=== PATIENT | female | born 1955 | race Caucasian/White ===

== ENCOUNTER 2016-06-15 16:30 | Inpatient (IN) ==
[2016-06-15] MEDS ORDERED: MetroNIDAZOLE 500 MG/100 ML 500 MG/100 ML BAG IVPB ONE (17:46)
--- NOTE | 2016-06-15 17:55 | Emergency Department Note ---
Disposition Clinical Impression: Diverticulitis Qualifiers: Diverticulitis site: large intestine Diverticulitis bleeding: without bleeding Diverticulitis complication: without perforation or abscess Qualified Code(s): K57.32 - Diverticulitis of large intestine without perforation or abscess without bleeding Disposition: Admitted As Inpatient Condition: Fair Referrals: NO,PCP [Primary Care Provider] - Forms: Work/School Release, ED Satisfaction Letter Time of Disposition: 17:56 Abdominal Pain HPI - General Chief Complaint: ED Abdominal Pain Stated Complaint: ABD pain Source: patient Mode of arrival: ambulatory Limitations: no limitations Nursing Notes Reviewed: Yes Vital Signs Reviewed: Yes - History of Present Illness HPI Narrative: 2-year-old who complains of abdominal pain. Patient was seen by her family doctor had a CT yesterday which showed findings compatible with acute sigmoid diverticulitis there appears to be a very small fluid collection posterior to the sigmoid colon which may represent a small abscess. She was started on antibiotics and her symptoms got worse. Pt Subjective Complaint: abdominal pain Onset (ago): day(s) Consistency: constant Location: LLQ Pain Severity: severe Pain Scale: 9 Quality: cramping Radiation: none Migration to: no migration Improves with: nothing - Related Data Allergies Allergy/AdvReac Type Severity Reaction Status Date / Time meperidine [From Demerol] AdvReac Vomiting Verified 06/15/16 17:22 morphine AdvReac Vomiting Verified 06/15/16 17:22 Constitutional: Denies: fever, chills, weakness, weight change Eyes: Denies: eye pain, eye discharge, vision change ENT ED: Denies: ear pain, throat pain, dental pain, hearing loss, epistaxis, congestion, dysphagia Cardiovascular: Denies: chest pain, palpitations, dyspnea on exertion, edema, syncope Respiratory: Denies: cough, dyspnea, wheezes, hemoptysis, stridor Gastrointestinal: Reports: abdominal pain. Denies: nausea, vomiting, diarrhea, constipation, hematemesis, melena, hematochezia Genitourinary: Denies: dysuria, frequency, hematuria, discharge Musculoskeletal: Denies: back pain, neck pain, arthralgia, myalgia Integumentary: Denies: rash, abrasion, lesions Neurological: Denies: headache, weakness, numbness, paresthesias, confusion, abnormal gait, vertigo Psychiatric: Denies: anxiety, depression, suicidal thoughts, homicidal thoughts , auditory hallucinations, visual hallucinations Endocrine: Denies: fatigue Hematological/Lymphatic: Denies: easy bleeding, easy bruising Allergic/Immunologic: Denies: facial swelling, urticaria Abdominal Pain PMH - Past Medical History Medical history: Reports: fibromyalgia, other Female Surgical History: Reports: , cholecystectomy, hysterectomy, Tonsillectomy Psychiatric history: Reports: no psych history - Social History Smoking status: Never smoker Alcohol use: Reports: occasionally Drug use: Reports: none Physical Exam - General Limitations: no limitations General appearance: alert, in no apparent distress - Head Head exam: atraumatic, normocephalic, normal inspection - Eye Eye exam: Present: normal appearance, PERRL, EOMI - ENT ENT exam: normal exam, normal oropharynx, mucous membranes moist - Neck Neck exam: Present: normal inspection, full ROM, trachea midline - Chest Chest inspection: Present: normal inspection, symmetric chest wall rise - Respiratory Respiratory exam: Present: normal lung sounds bilaterally - Cardiovascular Cardiovascular exam: Present: regular rate, normal rhythm, normal heart sounds - Abdominal Exam Abdominal exam: Present: tenderness. Absent: guarding, rebound Abdominal tenderness: Present: LLQ - Extremities Exam Extremities exam: Present: normal inspection, full ROM. Absent: tenderness, pedal edema - Expanded Lower Extremity Exam Gait: observed and normal - Back Exam Back exam: Present: normal inspection, full ROM. Absent: tenderness - Neurological Exam Neurological exam: Present: alert, oriented X3 - Psychiatric Psychiatric exam: Present: normal affect, normal mood - Skin Skin exam: Present: warm, dry, intact, normal color Course - Consultations Consultation #1: Discussed with Dr. Murdock, admit to the hospitalist. Time: 18:38 Consultation #2: Discussed with Dr. Lopez, it. Time: 18:41 Vital Signs Temperature 98.3 F 06/15/16 17:18 Pulse Rate 96 06/15/16 17:18 Respiratory Rate 16 06/15/16 17:18 Blood Pressure 164/106 06/15/16 17:18 O2 Sat by Pulse Oximetry 98 06/15/16 17:18 Temperature 98.3 F 06/15/16 17:18 Pulse Rate 96 06/15/16 17:18 Respiratory Rate 16 06/15/16 17:18 Blood Pressure 164/106 06/15/16 17:18 O2 Sat by Pulse Oximetry 98 06/15/16 17:18 Oxygen Delivery Oxygen Delivery Room Air Abdominal Pain - Lab Data Result diagrams: 06/15/16 18:09 06/15/16 18:09 Lab Results 06/15/16 06/15/16 Range/Units 18:09 18:09 WBC 10.3 (4.3-11.1) K/mcL RBC 5.35 H (3.82-4.97) M/mcL Hgb 15.0 (11.5-15.4) g/dL Hct 43.3 (35.3-44.9) % MCV 80.9 L (83.0-100.0) fL MCH 28.0 (28.0-33.3) pg MCHC 34.6 (31.6-35.5) g/dL RDW 12.3 (11.5-14.5) % Plt Count 380 (140-400) K/mcL MPV 8.5 L (9.4-12.4) fL Immature Gran % 0.5 (0-4) % Seg Neutrophils % 70.8 % Lymphocytes % 19.1 % Monocytes % 8.0 % Eosinophils % 1.1 % Basophils % 0.5 % Neutrophils # 7.3 (1.6-8.9) K/mcL Lymphocytes # 2.0 (0.6-4.6) K/mcL Monocytes # 0.8 (0.0-1.3) K/mcL Eosinophils # 0.1 (0.0-0.6) K/mcL Basophils # 0.1 (0.0-0.2) K/mcL Sodium 139 (136-145) mEq/L Potassium 3.8 (3.5-4.5) mEq/L Chloride 105 (98-109) mEq/L Carbon Dioxide 22 (19-29) mEq/L BUN 15 (7-20) mg/dL Creatinine 0.96 (0.57-1.11) mg/dL Est GFR ( Amer) > 60 (> 60) Est GFR (Non-Af Amer) 59 L (> 60) BUN/Creatinine Ratio 16 (6-26) Glucose 123 H (70-99) mg/dL Calculated Osmolality 290 (280-300) Calcium 9.9 (8.6-10.8) mg/dL Total Bilirubin 0.5 (0.2-1.2) mg/dL Direct Bilirubin 0.2 (0.0-0.5) mg/dL Indirect Bilirubin 0.3 (0.0-1.2) mg/dL AST 19 (5-34) Units/L ALT 24 (0-55) Units/L Alkaline Phosphatase 120 (38-126) Units/L Serum Total Protein 8.2 (6.0-8.3) g/dL Albumin 3.7 (3.5-5.0) g/dL Globulin 4.5 H (2.4-3.5) g/dL Albumin/Globulin Ratio 0.8 L (1.1-2.2) Amylase 31 (25-125) Units/L Lipase 15 (8-78) Units/L S.B.A.R. - S.B.A.R. Recommendation: Recommendation based on pending studies, treatments, or consults S.B.A.R. Report Given to: Dr. Harrington SLibbyB.A.Duglas Repor Time: 19:00
[2016-06-15] MEDS ORDERED: *HR* HYDROmorphone (PF) 1 MG/ML SYRINGE IVP ONE (18:13)
[2016-06-15] MEDS ORDERED: *HR* Promethazine 25 MG/ML VIAL IVP ONE (18:13)
[2016-06-15 18:16] LABS: Basophils # 0.1 K/mcL (0.0-0.2); Basophils % 0.5 %; Eosinophils # 0.1 K/mcL (0.0-0.6); Eosinophils % 1.1 %; Hematocrit 43.3 % (35.3-44.9); Immature Granulocytes % 0.5 % (0-4); Lymphocytes % 19.1 %; Mean Corpuscular HGB Conc 34.6 g/dL (31.6-35.5); Mean Corpuscular Volume 80.9 fL (83.0-100.0); Mean Platelet Volume 8.5 fL (9.4-12.4); Monocytes # 0.8 K/mcL (0.0-1.3); Neutrophils # 7.3 K/mcL (1.6-8.9); Platelet Count 380 K/mcL (140-400); Red Blood Count 5.35 M/mcL (3.82-4.97); Red Cell Distribution Width 12.3 % (11.5-14.5); Segmented Neutrophils % 70.8 %
[2016-06-15 18:30] LABS: Alanine Aminotransferase 24 Units/L (0-55); Albumin 3.7 g/dL (3.5-5.0); Albumin/Globulin Ratio 0.8 (1.1-2.2); Alkaline Phosphatase 120 Units/L (38-126); Amylase 31 Units/L (25-125); Aspartate Amino Transferase 19 Units/L (5-34); BUN/Creatinine Ratio 16 (6-26); Bilirubin,Direct 0.2 mg/dL (0.0-0.5); Bilirubin,Indirect 0.3 mg/dL (0.0-1.2); Bilirubin,Total 0.5 mg/dL (0.2-1.2); Blood Urea Nitrogen 15 mg/dL (7-20); Calcium 9.9 mg/dL (8.6-10.8); Carbon Dioxide 22 mEq/L (19-29); Chloride 105 mEq/L (98-109); Globulin 4.5 g/dL (2.4-3.5); Glucose 123 mg/dL (70-99); Lipase 15 Units/L (8-78); Osmolality,Calculated 290 (280-300); Potassium 3.8 mEq/L (3.5-4.5); Sodium 139 mEq/L (136-145); Total Protein 8.2 g/dL (6.0-8.3); eGFR For African Americans > 60 (> 60); eGFR For Non-African Americans 59 (> 60)
[2016-06-15] MEDS ORDERED: Ertapenem 1,000 MG in 0.9 % Sodium Chloride Mini Bag 100 ML IVPB STA (18:40)
[2016-06-15] MEDS ORDERED: Naloxone 0.4 MG/ML INJ IVP PRN (20:03)
--- NOTE | 2016-06-15 20:12 | Internal Med History&Physical ---
Date of Encounter: 06/15/16 Time of Encounter: 07:45 Assessment and Plan (1) Diverticulitis Current visit: Yes Status: Acute Continue Ertapenem 1gm/day dilaudid .5 PRN Q2hr Phenergan 12.5 PRN Q4hr Maintenance saline 100ml/hr NPO diet Consult to surgery. Qualifiers: Diverticulitis site: large intestine Diverticulitis bleeding: without bleeding Diverticulitis complication: with abscess Qualified Code(s): K57.20 - Diverticulitis of large intestine with perforation and abscess without bleeding (2) Obesity (BMI 30-39.9) Current visit: Yes Status: Acute (3) DVT prophylaxis Current visit: Yes Status: Acute 5000 units heparin SQ Q8hr Internal Medicine - H&P: HPI Chief complaint: abdominal pain Admitted From: Emergency Dept Plans for Post Hospital Care: Home History of present illness: Ms. Jules is a 60 year old female with PMH significant for fibromyalgia who presented to the emergency room with abdominal pain. She states that the pain started two weeks ago and has been slowly worsening. Yesterday she went to see her primary care physician who started her on ciprofloxacin and metronidazole and sent her for a CT. The CT demonstrated acute sigmoid diverticulitis and a small fluid collection posterior to the sigmoid colon that may represent a small abscess. She states that she has been having to strain for her bowel movements for the past week, but did not have a bowel movement yet today due to worsening pain. She had a recent illness on 05/28/16 that included nausea, vomiting, and diarrhea, but these symptoms only lasted one day. She reports no nausea, vomiting, or diarrhea since then. She has had 2 instances of fever in the past week, but did not have her temperature measured. She denies having any blood in her stools and any darkening of her stools. Past Med Surg Social Fam HX - Past Medical History Medical history: fibromyalgia, other Psychiatric history: no psych history - Past Surgical History Surgical History: , cholecystectomy, hysterectomy (partial), other ( tonsillectomy) - Social History Smoking Status: Never smoker Smokeless Tobacco Status: No Alcohol use: occasionally Drug use: none - Family History Mother Adopted: No Family Member Ethnicity: Non- Twin of Family Member: Yes Living Status: Cause of : cancer Hx Family Cardiac Disorders: Yes (triple bypass) Hx Family Respiratory Disorders: No Hx Family Cancer: Yes Hx Family GI Disorders: No Hx Family Genitourinary Disorders: No Hx Family Endocrine Disorder: No Hx Family Musculoskeletal Disorders: No Hx Family Neuromuscular Disorders: No Hx Family Neurologic Disorders: No Hx Family HEENT Disorders: No Hx Family Autoimmune Disorders: No Hx Family Reproductive Disorders: No Hx Family Psychosocial Disorders: No Hx Family Medical Disorders: No Father Living Status: Hx Family Cancer: Yes (brain tumor) Sister Hx Family Cancer: Yes Brother Living Status: Still Living Hx Family Cancer: Yes (brain tumor) Internal Medicine - H&P: Meds Ciprofloxacin [Cipro] 500 mg PO BID 06/15/16 [History] MetroNIDAZOLE [Flagyl] 500 mg PO Q8H 06/15/16 [History] Allergies meperidine [From Demerol] Adverse Reaction (Verified 06/15/16 17:22) Vomiting morphine Adverse Reaction (Verified 06/15/16 17:22) Vomiting All Systems PM: A 10-system review of systems was performed and is negative for pertinent findings except as documented above in the HPI. - Constitutional Constitutional: fever(s), no chills, no night sweats - EENT Eyes: no change in vision, no discharge, no pain, no photophobia Ears: no ear discharge, no ear pain, no tinnitus Nose, mouth and throat: no dysphagia, no nasal discharge, no neck pain, no sore throat - Cardiovascular Cardiovascular ROS IM: no chest pain, no diaphoresis, no dyspnea, no lightheadedness, no palpitations, no syncope - Respiratory Respiratory: no cough, no dyspnea, no wheezing, no excessive phlegm production - Gastrointestinal Gastrointestinal: abdominal pain, no diarrhea, no hematemesis, no hematochezia, no melena, no nausea, no vomiting - Genitourinary Genitourinary: no change in urinary stream, no dysuria, no flank pain, no hematuria - Musculoskeletal Musculoskeletal ROS IM: no numbness, no tingling - Integumentary Integumentary IM: no rash, no unusual bruising - Neurological Neurological ROS: no confusion, no convulsions, no focal weakness, no numbness, no tingling, no tremor(s) - Hematologic/Lymphatic Hematologic/Lymphatic: no easy bruising - Constitutional Vitals: Temp Pulse Resp BP Pulse Ox 98.3 F 82 16 148/68 97 06/15/16 17:18 06/15/16 18:30 06/15/16 19:20 06/15/16 19:20 06/15/16 18:30 General appearance: Present: A&O X 3, pleasant, no acute distress - Head Head exam: Present: atraumatic, normocephalic - Eye Eye exam: Present: PERRL, conjuntiva pink, sclera anicteric Pupils: Present: PERRL - Neck Neck exam general surgery: Present: supple, trachea midline. Absent: lymphadenopathy - Respiratory Respiratory exam: Present: CTAB. Absent: accessory muscle use, rales, rhonchi, wheezes - Cardiovascular Cardiovascular exam: Present: RRR, +S1, +S2. Absent: diastolic murmur, gallop, rubs, systolic murmur - GI/Abdominal GI/Abdominal exam: Present: normal bowel sounds, soft, tenderness (LLQ), no peritoneal signs. Absent: distended, guarding, rigid - Extremities Exam Extremities exam: Present: warm, radial pulses palpable and symetrical. Absent : calf tenderness, cyanotic, pedal edema - Neurological Exam Neurological exam: Present: CN II-XII intact, oriented X3, no focal deficits. Absent: pronater drift, facial droop, speech deficit - Skin Skin exam: Present: dry, intact Internal Med - H&P Results - Labs CBC & Chem 7: 06/15/16 18:09 06/15/16 18:09 - Attending Attestation I examined this patient and my medical decision-making was reviewed with the [employer] SAL[employer] AGENT/PA/Advanced Practice Nurse/Resident Physician. I agree with the documented findings, disposition and treatment plan as described except to the extent set forth below.
[2016-06-15] MEDS ORDERED: 0.9 % Sodium Chloride 1,000 ML IVC SCH (20:15)
--- NOTE | 2016-06-15 20:21 | Event Note ---
Date of Encounter: 06/15/16 Time of Encounter: 20:19 Patient seen and examined with medical assistant secretary. Patient has been having lower abdominal pain for the past 2 weeks but has not sought medical advice except yesterday she was found to have acute diverticulitis with abscess formation. Started on Cipro and Flagyl yesterday but no improvement in pain rather worsening. She will be started on ertepenam, NPO, hydration. Surgery team to follow. Blood Cultures.
[2016-06-15] MEDS: *HR* HYDROmorphone (PF) 1 MG/ML SYRINGE IVP PRN (21:37)
[2016-06-15] MEDS: *HR* Promethazine 25 MG/ML VIAL IVP PRN (21:44)
[2016-06-15] MEDS: *HR* Heparin 5,000 UNIT/ML VIAL SQ SCH (21:44)
[2016-06-16] MEDS: *HR* HYDROmorphone (PF) 1 MG/ML SYRINGE IVP PRN ×6 (00:01→23:28)
[2016-06-16 00:10] LABS: Bilirubin,Urine Negative (Negative); Blood,Urine Negative (Negative); Clarity,Urine Clear (Clear); Color,Urine Dark Yellow (Yellow); Glucose,Urine (UA) Normal (Normal); Ketones,Urine Negative (Negative); Leukocyte Esterase,Urine Small (Negative); Nitrite,Urine Negative (Negative); Protein,Urine Negative (Neg-Trace); Specific Gravity,Urine 1.023 (1.010-1.025); Urobilinogen,Urine Normal (Normal)
[2016-06-16 00:13] LABS: Bacteria,Urine Few per hpf (None-Few); Hyaline Casts,Urine None Seen per lpf (None-Few); Squamous Epithelial Cell,Urine Many per lpf (None-Few)
[2016-06-16] MEDS: *HR* Promethazine 25 MG/ML VIAL IVP PRN ×4 (04:05→23:28)
[2016-06-16] MEDS: *HR* Heparin 5,000 UNIT/ML VIAL SQ SCH ×3 (05:23→21:27)
[2016-06-16 05:53] LABS: Basophils % 0.3 %; Eosinophils % 0.3 %; Hemoglobin 13.8 g/dL (11.5-15.4); Immature Granulocytes % 0.8 % (0-4); Lymphocytes # 1.4 K/mcL (0.6-4.6); Lymphocytes % 13.9 %; Mean Corpuscular HGB Conc 33.7 g/dL (31.6-35.5); Mean Corpuscular Volume 83.2 fL (83.0-100.0); Mean Platelet Volume 8.5 fL (9.4-12.4); Monocytes # 0.9 K/mcL (0.0-1.3); Monocytes % 9.2 %; Neutrophils # 7.7 K/mcL (1.6-8.9); Platelet Count 374 K/mcL (140-400); Red Blood Count 4.93 M/mcL (3.82-4.97); Red Cell Distribution Width 12.5 % (11.5-14.5); Segmented Neutrophils % 75.5 %
[2016-06-16 06:05] LABS: BUN/Creatinine Ratio 16 (6-26); Blood Urea Nitrogen 14 mg/dL (7-20); Calcium 9.3 mg/dL (8.6-10.8); Carbon Dioxide 24 mEq/L (19-29); Chloride 107 mEq/L (98-109); Glucose 123 mg/dL (70-99); Osmolality,Calculated 286 (280-300); Potassium 4.2 mEq/L (3.5-4.5); Sodium 137 mEq/L (136-145); eGFR For African Americans > 60 (> 60); eGFR For Non-African Americans > 60 (> 60)
[2016-06-16] MEDS: 0.9 % Sodium Chloride 1,000 ML IVC SCH ×3 (08:57→19:42)
[2016-06-16] MEDS: Ertapenem 1,000 MG in 0.9 % Sodium Chloride Mini Bag 100 ML IVPB SCH (09:05)
--- NOTE | 2016-06-16 12:21 | General Surgery Consult Note ---
<AlfieYolande Riley - Last Filed: 06/16/16 12:15> Date of Encounter: 06/16/16 Time of Encounter: 12:15 Assessment and Plan (1) Acute diverticulitis Current Visit: Yes Status: Acute Maintain NPO and bowel rest IV fluids IV antibiotics- Invanz abscess is small and not big enough for drain placement at this time Supportive care and pain control Serial abdominal exams Plan for interval colonoscopy in 6-[address] Richter History of Present Illness Consult date: 06/16/16 Reason for consult: other (diverticulitis with abscess) Requesting physician: Cortez Brown History of present illness: Mrs. Jules is a very pleasant 68. She reports a 2 week history of abdominal discomfort which has progressively worsened. She reported to her PCP and a CT scan of the abdomen/pelvis was complete. The CT showed evidence of acute diverticulitis with abscess formation. The patient was sent to the hospital for admission and treatment. She reports that the pain is located in the LLQ and suprapubic region. Radiation into the back noted. Admits to nausea without vomiting. She admits to chills and episodes of diaphoresis but has not checked her temperature at home. She states that her bowel movements have changed over the past few days. She typically has a bowel movement daily without any history of diarrhea or constipation. She had a small bowel movement yesterday and states that she has not been able to have a bowel movement today. She states that she has to pass flatus but that she is unable to. Admits to feeling bloated. She states that she has significant pressure with urination which has improved over the past 24 hours. Lack of appetite noted. She had her last colonoscopy in 2009 and states it was normal and she was told to have a repeat scope in 10 years for screening purposes. She has never had an episode of diverticulitis in the past. We have been asked to see and evaluate the patient for further recommendations. Past Med Surg Social Fam HX - Past Medical History Source: patient, old records reviewed Medical history: fibromyalgia, hypertension, other Psychiatric history: no psych history - Past Surgical History Surgical History: , cholecystectomy, hysterectomy (partial, still has ovaries), other (tonsillectomy, surgery for endometriosis, colonoscopy 2009) - Social History Smoking Status: Never smoker Smokeless Tobacco Status: No Alcohol use: occasionally (glass of wine on occasion) Drug use: none - Family History Mother Adopted: No Family Member Ethnicity: Non- Twin of Family Member: Yes Living Status: Age at : 64 Cause of : lung cancer Hx Family Cardiac Disorders: Yes (triple bypass) Hx Family Respiratory Disorders: No Hx Family Cancer: Yes Hx Family GI Disorders: No Hx Family Genitourinary Disorders: No Hx Family Endocrine Disorder: No Hx Family Musculoskeletal Disorders: No Hx Family Neuromuscular Disorders: No Hx Family Neurologic Disorders: No Hx Family HEENT Disorders: No Hx Family Autoimmune Disorders: No Hx Family Reproductive Disorders: No Hx Family Psychosocial Disorders: No Hx Family Medical Disorders: No Father Living Status: Age at : 67 Cause of : meningitis after brain surgery Hx Family Cancer: Yes (brain tumor) Sister Living Status: Age at : 54 Cause of : lung cancer Hx Family Cancer: Yes (lung cancer) Brother Living Status: Still Living Hx Family Cancer: Yes (brain tumor) Medications and Allergies Ciprofloxacin [Cipro] 500 mg PO BID 06/15/16 [History] MetroNIDAZOLE [Flagyl] 500 mg PO Q8H 06/15/16 [History] Allergies meperidine [From Demerol] Adverse Reaction (Verified 06/15/16 17:22) Vomiting morphine Adverse Reaction (Verified 06/15/16 17:22) Vomiting Review of Systems All systems PM: reviewed and no additional remarkable complaints except as stated (in the HPI) All systems PM: A 10-system review of systems was performed and is negative for pertinent findings except as documented above in the HPI. General Surgery Exam Initial Vital Signs Temp Pulse Resp BP Pulse Ox 98.3 F 96 16 164/106 98 06/15/16 17:18 06/15/16 17:18 06/15/16 17:18 06/15/16 17:18 06/15/16 17:18 - General physical appearance well developed, well nourished, no distress, moderate pain - Eyes normal ocular movement - ENT normal mucosa, atraumatic, normocephalic - Neck trachea midline - Respiratory normal expansion, normal respiratory effort, clear to auscultation - Cardiovascular Cardiovascular exam: Present: RRR, 15, 16 - Abdomen Abdomen general surgery: Present: bowel sounds present, soft, tender Abdominal Tenderness: Present: LLQ, suprapubic - Integumentary Integumentary general surgery: Present: warm and dry - Neurologic Present: CN 2-12 grossly intact, normal coordination, normal sensation - Musculoskeletal Present: normal gait, normal posture - Psychiatric Psychiatric general surgery: Present: appropriate, oriented to person, oriented to place, oriented to time, speech is normal, memory intact Exam Initial Vital Signs Temp Pulse Resp BP Pulse Ox 98.3 F 96 16 164/106 98 06/15/16 17:18 06/15/16 17:18 06/15/16 17:18 06/15/16 17:18 06/15/16 17:18 Results - Labs 06/16/16 05:39 06/16/16 05:39 Abnormal lab results MPV 8.5 fL (9.4-12.4) L 06/16/16 05:39 Immature Plt Fraction 1.0 % (1.1-6.1) L 06/16/16 05:39 Glucose 123 mg/dL (70-99) H 06/16/16 05:39 POC Glucose 115 (58-89) H 06/16/16 11:22 Globulin 4.5 g/dL (2.4-3.5) H 06/15/16 18:09 Albumin/Globulin Ratio 0.8 (1.1-2.2) L 06/15/16 18:09 Ur Leukocyte Esterase Small (Negative) H 06/15/16 23:55 Urine Microscopic RBC 3-5 per hpf (0-3) H 06/15/16 23:55 Urine Microscopic WBC 3-5 per hpf (0-3) H 06/15/16 23:55 Ur Squamous Epith Cells Many per lpf (None-Few) H 06/15/16 23:55 Ur Culture Indicated? YES (NO) A 06/15/16 23:55 Diabetes panel 06/16/16 Range/Units 05:39 Sodium 137 (136-145) mEq/L Potassium 4.2 (3.5-4.5) mEq/L Chloride 107 (98-109) mEq/L Carbon Dioxide 24 (19-29) mEq/L BUN 14 (7-20) mg/dL Creatinine 0.90 (0.57-1.11) mg/dL Glucose 123 H (70-99) mg/dL Calcium 9.3 (8.6-10.8) mg/dL Calcium panel 06/16/16 Range/Units 05:39 Calcium 9.3 (8.6-10.8) mg/dL Pituitary panel 06/16/16 Range/Units 05:39 Sodium 137 (136-145) mEq/L Potassium 4.2 (3.5-4.5) mEq/L Chloride 107 (98-109) mEq/L Carbon Dioxide 24 (19-29) mEq/L BUN 14 (7-20) mg/dL Creatinine 0.90 (0.57-1.11) mg/dL Glucose 123 H (70-99) mg/dL Calcium 9.3 (8.6-10.8) mg/dL Adrenal panel 06/16/16 Range/Units 05:39 Sodium 137 (136-145) mEq/L Potassium 4.2 (3.5-4.5) mEq/L Chloride 107 (98-109) mEq/L Carbon Dioxide 24 (19-29) mEq/L BUN 14 (7-20) mg/dL Creatinine 0.90 (0.57-1.11) mg/dL Glucose 123 H (70-99) mg/dL Calcium 9.3 (8.6-10.8) mg/dL All other labs normal. - Imaging CT scan - abdomen: report reviewed CT scan - pelvis: report reviewed Consult Discharge Plan - Plan Referrals: Maldonado Roberto DO [Primary Care Provider] - - Attending Attestation I examined this patient and my medical decision-making was reviewed with the FOCUSING MACHINE OPERATOR/PA/Advanced Practice Nurse/Resident Physician. I agree with the documented findings, disposition and treatment plan as described except to the extent set forth below. <Joana Richter - Last Filed: 06/16/16 18:11> Date of Encounter: 06/16/16 Assessment and Plan (1) Acute diverticulitis Current Visit: Yes Status: Acute (2) Colonic diverticular abscess Current Visit: Yes Status: Acute Patient with diverticular abscess unable to be drained at this time. WBC wnl, continue conservative management with bowel rest, npo, pain control, IV abx, serial abdominal exams. Will need repeat CT before DC Review of Systems All systems PM: A 10-system review of systems was performed and is negative for pertinent findings except as documented above in the HPI. General Surgery Exam Initial Vital Signs Temp Pulse Resp BP Pulse Ox 98.3 F 96 16 164/106 98 06/15/16 17:18 06/15/16 17:18 06/15/16 17:18 06/15/16 17:18 06/15/16 17:18 - General physical appearance well nourished, no distress - Eyes normal ocular movement - ENT normal mucosa, atraumatic, normocephalic - Abdomen Abdomen general surgery: Present: bowel sounds present, soft, tender. Absent: distended, guarding, rebound Abdominal Tenderness: Present: RLQ, LLQ, suprapubic - Integumentary Integumentary general surgery: Present: warm and dry, no abnormal pigmentation - Neurologic Present: CN 2-12 grossly intact - Musculoskeletal Present: normal posture - Psychiatric Psychiatric general surgery: Present: A&Ox3, speech is normal Exam Initial Vital Signs Temp Pulse Resp BP Pulse Ox 98.3 F 96 16 164/106 98 06/15/16 17:18 06/15/16 17:18 06/15/16 17:18 06/15/16 17:18 06/15/16 17:18 Results - Labs 06/16/16 05:39 06/16/16 05:39 Vital Signs Temp Pulse Resp BP Pulse Ox 06/16/16 16:15 98.2 F 88 16 177/83 96 06/16/16 11:34 98.8 F 80 16 168/89 96 06/16/16 07:35 98.7 F 78 16 161/90 96 06/16/16 05:48 98.3 F 80 18 157/81 95 06/15/16 23:53 97.9 F 82 18 147/81 97 06/15/16 20:10 98.3 F 77 18 152/86 98 06/15/16 19:20 16 148/68 06/15/16 18:30 82 16 140/81 97 Intake and Output 06/16/16 06/16/16 06/16/16 07:59 15:59 23:59 Intake Total 0 / 0 1100 / 1100 0 / 0 Output Total 100 / 100 425 / 425 100 / 100 Balance -100 / -100 675 / 675 -100 / -100 Intake: IV Fluids 1100 / 1100 0.9 % Sodium Chloride 1, 1000 / 1000 000 ML @ 75 mls/hr IVC . [id number] [facility] Rx#: [id number] INVanz 1,000 MG In 0.9 % 100 / 100 Sodium Chloride (Mini-Bag +) 100 ML @ 100 mls/hr IVPB DAILY [facility] Rx#: [id number] Oral 0 / 0 0 / 0 0 / 0 Output: Urine 100 / 100 425 / 425 100 / 100 Other: Meal NPO # Bowel Movements 0 Blood Glucose* 115 115 107 All Lab Results (24 Hours) 06/15/16 06/15/16 06/15/16 Range/Units 18:09 18:09 23:55 WBC 10.3 (4.3-11.1) K/mcL RBC 5.35 H (3.82-4.97) M/mcL Hgb 15.0 (11.5-15.4) g/dL Hct 43.3 (35.3-44.9) % MCV 80.9 L (83.0-100.0) fL MCH 28.0 (28.0-33.3) pg MCHC 34.6 (31.6-35.5) g/dL RDW 12.3 (11.5-14.5) % Plt Count 380 (140-400) K/mcL MPV 8.5 L (9.4-12.4) fL Immature Gran % 0.5 (0-4) % Seg Neutrophils % 70.8 % Lymphocytes % 19.1 % Monocytes % 8.0 % Eosinophils % 1.1 % Basophils % 0.5 % Neutrophils # 7.3 (1.6-8.9) K/mcL Lymphocytes # 2.0 (0.6-4.6) K/mcL Monocytes # 0.8 (0.0-1.3) K/mcL Eosinophils # 0.1 (0.0-0.6) K/mcL Basophils # 0.1 (0.0-0.2) K/mcL Immature Plt Fraction (1.1-6.1) % Sodium 139 (136-145) mEq/L Potassium 3.8 (3.5-4.5) mEq/L Chloride 105 (98-109) mEq/L Carbon Dioxide 22 (19-29) mEq/L BUN 15 (7-20) mg/dL Creatinine 0.96 (0.57-1.11) mg/dL Est GFR ( Amer) > 60 (> 60) Est GFR (Non-Af Amer) 59 L (> 60) BUN/Creatinine Ratio 16 (6-26) Glucose 123 H (70-99) mg/dL POC Glucose (58-89) Calculated Osmolality 290 (280-300) Calcium 9.9 (8.6-10.8) mg/dL Total Bilirubin 0.5 (0.2-1.2) mg/dL Direct Bilirubin 0.2 (0.0-0.5) mg/dL Indirect Bilirubin 0.3 (0.0-1.2) mg/dL AST 19 (5-34) Units/L ALT 24 (0-55) Units/L Alkaline Phosphatase 120 (38-126) Units/L Serum Total Protein 8.2 (6.0-8.3) g/dL Albumin 3.7 (3.5-5.0) g/dL Globulin 4.5 H (2.4-3.5) g/dL Albumin/Globulin Ratio 0.8 L (1.1-2.2) Amylase 31 (25-125) Units/L Lipase 15 (8-78) Units/L Urine Color Dark Yellow (Yellow) Urine Clarity Clear (Clear) Urine pH 6.0 (5.0-8.0) pH Units Ur Specific Tillson 1.023 (1.010-1.025) Urine Protein Negative (Neg-Trace) mg/dL Urine Glucose (UA) Normal (Normal) mg/dL Urine Ketones Negative (Negative) mg/dL Urine Blood Negative (Negative) Urine Nitrite Negative (Negative) Urine Bilirubin Negative (Negative) Urine Urobilinogen Normal (Normal) mg/dL Ur Leukocyte Esterase Small H (Negative) Urine Microscopic RBC 3-5 H (0-3) per hpf Urine Microscopic WBC 3-5 H (0-3) per hpf Ur Squamous Epith Cells Many H (None-Few) per lpf Urine Bacteria Few (None-Few) per hpf Hyaline Casts None Seen (None-Few) per lpf Ur Culture Indicated? YES A (NO) 06/15/16 06/16/16 06/16/16 Range/Units 23:57 05:39 05:39 WBC 10.2 (4.3-11.1) K/mcL RBC 4.93 (3.82-4.97) M/mcL Hgb 13.8 (11.5-15.4) g/dL Hct 41.0 (35.3-44.9) % MCV 83.2 (83.0-100.0) fL MCH 28.0 (28.0-33.3) pg MCHC 33.7 (31.6-35.5) g/dL RDW 12.5 (11.5-14.5) % Plt Count 374 (140-400) K/mcL MPV 8.5 L (9.4-12.4) fL Immature Gran % 0.8 (0-4) % Seg Neutrophils % 75.5 % Lymphocytes % 13.9 % Monocytes % 9.2 % Eosinophils % 0.3 % Basophils % 0.3 % Neutrophils # 7.7 (1.6-8.9) K/mcL Lymphocytes # 1.4 (0.6-4.6) K/mcL Monocytes # 0.9 (0.0-1.3) K/mcL Eosinophils # 0.0 (0.0-0.6) K/mcL Basophils # 0.0 (0.0-0.2) K/mcL Immature Plt Fraction 1.0 L (1.1-6.1) % Sodium 137 (136-145) mEq/L Potassium 4.2 (3.5-4.5) mEq/L Chloride 107 (98-109) mEq/L Carbon Dioxide 24 (19-29) mEq/L BUN 14 (7-20) mg/dL Creatinine 0.90 (0.57-1.11) mg/dL Est GFR ( Amer) > 60 (> 60) Est GFR (Non-Af Amer) > 60 (> 60) BUN/Creatinine Ratio 16 (6-26) Glucose 123 H (70-99) mg/dL POC Glucose 108 H (58-89) Calculated Osmolality 286 (280-300) Calcium 9.3 (8.6-10.8) mg/dL Total Bilirubin (0.2-1.2) mg/dL Direct Bilirubin (0.0-0.5) mg/dL Indirect Bilirubin (0.0-1.2) mg/dL AST (5-34) Units/L ALT (0-55) Units/L Alkaline Phosphatase (38-126) Units/L Serum Total Protein (6.0-8.3) g/dL Albumin (3.5-5.0) g/dL Globulin (2.4-3.5) g/dL Albumin/Globulin Ratio (1.1-2.2) Amylase (25-125) Units/L Lipase (8-78) Units/L Urine Color (Yellow) Urine Clarity (Clear) Urine pH (5.0-8.0) pH Units Ur Specific Tillson (1.010-1.025) Urine Protein (Neg-Trace) mg/dL Urine Glucose (UA) (Normal) mg/dL Urine Ketones (Negative) mg/dL Urine Blood (Negative) Urine Nitrite (Negative) Urine Bilirubin (Negative) Urine Urobilinogen (Normal) mg/dL Ur Leukocyte Esterase (Negative) Urine Microscopic RBC (0-3) per hpf Urine Microscopic WBC (0-3) per hpf Ur Squamous Epith Cells (None-Few) per lpf Urine Bacteria (None-Few) per hpf Hyaline Casts (None-Few) per lpf Ur Culture Indicated? (NO) 06/16/16 06/16/16 06/16/16 Range/Units 05:50 11:22 17:09 WBC (4.3-11.1) K/mcL RBC (3.82-4.97) M/mcL Hgb (11.5-15.4) g/dL Hct (35.3-44.9) % MCV (83.0-100.0) fL MCH (28.0-33.3) pg MCHC (31.6-35.5) g/dL RDW (11.5-14.5) % Plt Count (140-400) K/mcL MPV (9.4-12.4) fL Immature Gran % (0-4) % Seg Neutrophils % % Lymphocytes % % Monocytes % % Eosinophils % % Basophils % % Neutrophils # (1.6-8.9) K/mcL Lymphocytes # (0.6-4.6) K/mcL Monocytes # (0.0-1.3) K/mcL Eosinophils # (0.0-0.6) K/mcL Basophils # (0.0-0.2) K/mcL Immature Plt Fraction (1.1-6.1) % Sodium (136-145) mEq/L Potassium (3.5-4.5) mEq/L Chloride (98-109) mEq/L Carbon Dioxide (19-29) mEq/L BUN (7-20) mg/dL Creatinine (0.57-1.11) mg/dL Est GFR ( Amer) (> 60) Est GFR (Non-Af Amer) (> 60) BUN/Creatinine Ratio (6-26) Glucose (70-99) mg/dL POC Glucose 115 H 115 H 107 H (58-89) Calculated Osmolality (280-300) Calcium (8.6-10.8) mg/dL Total Bilirubin (0.2-1.2) mg/dL Direct Bilirubin (0.0-0.5) mg/dL Indirect Bilirubin (0.0-1.2) mg/dL AST (5-34) Units/L ALT (0-55) Units/L Alkaline Phosphatase (38-126) Units/L Serum Total Protein (6.0-8.3) g/dL Albumin (3.5-5.0) g/dL Globulin (2.4-3.5) g/dL Albumin/Globulin Ratio (1.1-2.2) Amylase (25-125) Units/L Lipase (8-78) Units/L Urine Color (Yellow) Urine Clarity (Clear) Urine pH (5.0-8.0) pH Units Ur Specific Tillson (1.010-1.025) Urine Protein (Neg-Trace) mg/dL Urine Glucose (UA) (Normal) mg/dL Urine Ketones (Negative) mg/dL Urine Blood (Negative) Urine Nitrite (Negative) Urine Bilirubin (Negative) Urine Urobilinogen (Normal) mg/dL Ur Leukocyte Esterase (Negative) Urine Microscopic RBC (0-3) per hpf Urine Microscopic WBC (0-3) per hpf Ur Squamous Epith Cells (None-Few) per lpf Urine Bacteria (None-Few) per hpf Hyaline Casts (None-Few) per lpf Ur Culture Indicated? (NO) - Imaging CT scan - abdomen: report reviewed, image reviewed CT scan - pelvis: report reviewed, image reviewed
--- NOTE | 2016-06-16 18:00 | Internal Med Progress Note ---
Date of Encounter: 06/16/16 Time of Encounter: 17:50 - Assessment and plan (1) Colonic diverticular abscess Current Visit: Yes Status: Acute Assessment and plan: Appreciated surgery team input continue conservative management (2) Acute diverticulitis Current Visit: Yes Status: Acute Assessment and plan: Continue current antibiotic IV fluid may consider clear liquid diet. Check CBC basic metabolic profile next a.m. (3) Obesity (BMI 30-39.9) Current Visit: Yes Status: Acute - Time Spent With Patient 25 - 35 minutes - Subjective Interval history: Patient is complaining DIFFUSE abdomen pain 3 of 10 in severity better compared to yesterday she has nausea but no vomiting. Patient stated that no bowel movement for last 2 days - Constitutional Vitals: Temp Pulse Resp BP Pulse Ox 98.2 F 88 16 177/83 96 06/16/16 16:15 06/16/16 16:15 06/16/16 16:15 06/16/16 16:15 06/16/16 16:15 General appearance: Present: A&O X 3, pleasant, no acute distress - Head Head exam: Present: atraumatic, normocephalic - Neck Neck exam general surgery: Present: supple, trachea midline. Absent: lymphadenopathy - Respiratory Respiratory exam: Present: CTAB. Absent: accessory muscle use, rales, rhonchi, wheezes - Cardiovascular Cardiovascular exam: Present: RRR, +S1, +S2. Absent: diastolic murmur, gallop, rubs, systolic murmur - GI/Abdominal GI/Abdominal exam: Present: diminished bowel sounds, soft, tenderness (Diffuse abdominal tenderness), no peritoneal signs. Absent: distended - Extremities Exam Extremities exam: Present: warm, radial pulses palpable and symetrical. Absent : calf tenderness, cyanotic, pedal edema Internal Medicine: Result - Labs CBC & Chem 7: 06/16/16 05:39 06/16/16 05:39 Labs: Short CBC 06/16/16 Range/Units 05:39 WBC 10.2 (4.3-11.1) K/mcL Hgb 13.8 (11.5-15.4) g/dL Hct 41.0 (35.3-44.9) % Plt Count 374 (140-400) K/mcL Neutrophils # 7.7 (1.6-8.9) K/mcL BMP 06/16/16 05:39 Sodium 137 Potassium 4.2 Chloride 107 Carbon Dioxide 24 BUN 14 Creatinine 0.90 Glucose 123 H Calcium 9.3 Consult Discharge Plan - Plan Referrals: Maldonado Roberto DO [Primary Care Provider] -
[2016-06-17 05:11] LABS: Basophils % 0.4 %; Eosinophils # 0.1 K/mcL (0.0-0.6); Eosinophils % 0.7 %; Hematocrit 39.2 % (35.3-44.9); Hemoglobin 13.1 g/dL (11.5-15.4); Immature Granulocytes % 0.6 % (0-4); Lymphocytes # 1.3 K/mcL (0.6-4.6); Lymphocytes % 12.9 %; Mean Corpuscular HGB Conc 33.4 g/dL (31.6-35.5); Mean Corpuscular Hemoglobin 28.5 pg (28.0-33.3); Mean Corpuscular Volume 85.2 fL (83.0-100.0); Mean Platelet Volume 8.4 fL (9.4-12.4); Neutrophils # 7.8 K/mcL (1.6-8.9); Platelet Count 296 K/mcL (140-400); Red Cell Distribution Width 12.6 % (11.5-14.5); Segmented Neutrophils % 75.4 %
[2016-06-17 05:26] LABS: BUN/Creatinine Ratio 12 (6-26); Blood Urea Nitrogen 10 mg/dL (7-20); Calcium 8.9 mg/dL (8.6-10.8); Carbon Dioxide 22 mEq/L (19-29); Chloride 107 mEq/L (98-109); Glucose 111 mg/dL (70-99); Magnesium 1.9 mg/dL (1.6-2.6); Osmolality,Calculated 282 (280-300); Phosphorous 2.4 mg/dL (2.3-4.7); Potassium 4.1 mEq/L (3.5-4.5); Sodium 136 mEq/L (136-145); eGFR For African Americans > 60 (> 60); eGFR For Non-African Americans > 60 (> 60)
[2016-06-17] MEDS: 0.9 % Sodium Chloride 1,000 ML IVC SCH ×2 (05:38→17:52)
[2016-06-17] MEDS: *HR* Heparin 5,000 UNIT/ML VIAL SQ SCH ×3 (05:41→22:29)
[2016-06-17] MEDS: *HR* HYDROmorphone (PF) 1 MG/ML SYRINGE IVP PRN ×5 (05:41→22:30)
[2016-06-17] MEDS: Ertapenem 1,000 MG in 0.9 % Sodium Chloride Mini Bag 100 ML IVPB SCH (09:35)
--- NOTE | 2016-06-17 11:06 | General Surgery Progress Note ---
<Maddie Bob - Last Filed: 06/17/16 13:10> Date of Encounter: 06/17/16 Time of Encounter: 11:04 - Assessment and Plan (1) Acute diverticulitis Current Visit: Yes Status: Acute NPO for now until abdominal exam is less tender IV fluids IV antibiotics- Invanz abscess is small and not big enough for drain placement at this time Supportive care and pain control Serial abdominal exams Plan for interval colonoscopy in 6-[address] Richter (2) DVT prophylaxis Current Visit: Yes Status: Acute subcutaneous heparin Subjective Patient reports: pain is less, voiding w/o difficulty, flatus, no bowel movement (last BM 3 days ago), afebrile Objective Vital Signs - Last 8 Hours Temp Pulse Resp BP Pulse Ox 06/17/16 07:22 95 06/17/16 07:15 98.7 F 88 16 145/79 95 06/17/16 04:28 99.0 F 84 18 159/82 98 Intake and Output 06/16/16 06/17/16 06/17/16 23:59 07:59 15:59 Intake Total 1000 / 1000 1000 / 1000 Output Total 700 / 700 500 / 500 Balance 300 / 300 500 / 500 Intake: IV Fluids 1000 / 1000 1000 / 1000 0.9 % Sodium Chloride 1, 1000 / 1000 1000 / 1000 000 ML @ 100 mls/hr IVC . Q10H [facility] Rx#:[id number] Oral 0 / 0 0 / 0 Output: Urine 700 / 700 500 / 500 Other: Meal NPO # Bowel Movements 0 Weight 91.4 kg Blood Glucose* 98 Patient Weight 06/17/16 23:59 Weight 91.4 kg - General physical appearance well developed, well nourished, no distress - Eyes normal ocular movement - ENT atraumatic, normocephalic - Neck Neck exam: trachea midline - Respiratory normal respiratory effort, clear to auscultation - Cardiovascular Cardiovascular exam: Present: RRR - Abdomen Abdomen: Present: soft, tender, guarding Abdominal Tenderness: diffusely (moderate) - Integumentary no rash - Psychiatric oriented to time, oriented to person, oriented to place, speech is normal - Labs 06/17/16 04:49 06/17/16 04:49 Diabetes panel 06/17/16 Range/Units 04:49 Sodium 136 (136-145) mEq/L Potassium 4.1 (3.5-4.5) mEq/L Chloride 107 (98-109) mEq/L Carbon Dioxide 22 (19-29) mEq/L BUN 10 (7-20) mg/dL Creatinine 0.82 (0.57-1.11) mg/dL Glucose 111 H (70-99) mg/dL Calcium 8.9 (8.6-10.8) mg/dL Calcium panel 06/17/16 Range/Units 04:49 Calcium 8.9 (8.6-10.8) mg/dL Phosphorus 2.4 (2.3-4.7) mg/dL Pituitary panel 06/17/16 Range/Units 04:49 Sodium 136 (136-145) mEq/L Potassium 4.1 (3.5-4.5) mEq/L Chloride 107 (98-109) mEq/L Carbon Dioxide 22 (19-29) mEq/L BUN 10 (7-20) mg/dL Creatinine 0.82 (0.57-1.11) mg/dL Glucose 111 H (70-99) mg/dL Calcium 8.9 (8.6-10.8) mg/dL Adrenal panel 06/17/16 Range/Units 04:49 Sodium 136 (136-145) mEq/L Potassium 4.1 (3.5-4.5) mEq/L Chloride 107 (98-109) mEq/L Carbon Dioxide 22 (19-29) mEq/L BUN 10 (7-20) mg/dL Creatinine 0.82 (0.57-1.11) mg/dL Glucose 111 H (70-99) mg/dL Calcium 8.9 (8.6-10.8) mg/dL Consult Discharge Plan - Plan Referrals: Maldonado Roberto, [Primary Care Provider] - <Joana Richter - Last Filed: 06/17/16 14:07> Date of Encounter: 06/17/16 - Assessment and Plan (1) Acute diverticulitis Current Visit: Yes Status: Acute continue conservative therapy, she is improving but still too tender for diet today, ok ice chips and popcicles (2) Colonic diverticular abscess Current Visit: Yes Status: Acute will repeat CT in a few days Subjective Patient reports: feels better, still having pain, pain is less, voiding w/o difficulty, flatus, no bowel movement, afebrile Objective Vital Signs - Last 8 Hours Temp Pulse Resp BP Pulse Ox 06/17/16 11:36 99.0 F 81 16 157/73 93 L 06/17/16 07:22 95 06/17/16 07:15 98.7 F 88 16 145/79 95 Intake and Output 06/16/16 06/17/16 06/17/16 23:59 07:59 15:59 Intake Total 1000 / 1000 1000 / 1000 100 / 100 Output Total 700 / 700 500 / 500 200 / 200 Balance 300 / 300 500 / 500 -100 / -100 Intake: IV Fluids 1000 / 1000 1000 / 1000 100 / 100 0.9 % Sodium Chloride 1, 1000 / 1000 1000 / 1000 000 ML @ 100 mls/hr IVC . Q10H [facility] Rx#:[id number] INVanz 1,000 MG In 0.9 % 100 / 100 Sodium Chloride (Mini-Bag +) 100 ML @ 100 mls/hr IVPB DAILY [facility] Rx#: [id number] Oral 0 / 0 0 / 0 Output: Urine 700 / 700 500 / 500 200 / 200 Other: Meal NPO # Bowel Movements 0 Weight 91.4 kg Blood Glucose* 98 92 Patient Weight 06/17/16 23:59 Weight 91.4 kg - General physical appearance well developed, well nourished, no distress - Eyes PERRL, normal ocular movement - ENT dry mucosa, atraumatic, normocephalic - Neck Neck exam: trachea midline - Respiratory normal expansion, clear to auscultation - Cardiovascular Cardiovascular exam: Present: RRR - Abdomen Abdomen: Present: bowel sounds present, soft, tender. Absent: guarding, rebound - Integumentary no rash, no growths - Neurologic CN 2-12 grossly intact - Musculoskeletal normal posture - Psychiatric oriented to time, oriented to person, memory intact - Labs 06/17/16 04:49 06/17/16 04:49 All Lab Results (24 Hours) 06/16/16 06/16/16 06/17/16 Range/Units 17:09 23:35 04:49 WBC 10.3 (4.3-11.1) K/mcL RBC 4.60 (3.82-4.97) M/mcL Hgb 13.1 (11.5-15.4) g/dL Hct 39.2 (35.3-44.9) % MCV 85.2 (83.0-100.0) fL MCH 28.5 (28.0-33.3) pg MCHC 33.4 (31.6-35.5) g/dL RDW 12.6 (11.5-14.5) % Plt Count 296 (140-400) K/mcL MPV 8.4 L (9.4-12.4) fL Immature Gran % 0.6 (0-4) % Seg Neutrophils % 75.4 % Lymphocytes % 12.9 % Monocytes % 10.0 % Eosinophils % 0.7 % Basophils % 0.4 % Neutrophils # 7.8 (1.6-8.9) K/mcL Lymphocytes # 1.3 (0.6-4.6) K/mcL Monocytes # 1.0 (0.0-1.3) K/mcL Eosinophils # 0.1 (0.0-0.6) K/mcL Basophils # 0.0 (0.0-0.2) K/mcL Sodium (136-145) mEq/L Potassium (3.5-4.5) mEq/L Chloride (98-109) mEq/L Carbon Dioxide (19-29) mEq/L BUN (7-20) mg/dL Creatinine (0.57-1.11) mg/dL Est GFR ( Amer) (> 60) Est GFR (Non-Af Amer) (> 60) BUN/Creatinine Ratio (6-26) Glucose (70-99) mg/dL POC Glucose 107 H 98 H (58-89) Calculated Osmolality (280-300) Calcium (8.6-10.8) mg/dL Phosphorus (2.3-4.7) mg/dL Magnesium (1.6-2.6) mg/dL 06/17/16 06/17/16 06/17/16 Range/Units 04:49 05:27 11:31 WBC (4.3-11.1) K/mcL RBC (3.82-4.97) M/mcL Hgb (11.5-15.4) g/dL Hct (35.3-44.9) % MCV (83.0-100.0) fL MCH (28.0-33.3) pg MCHC (31.6-35.5) g/dL RDW (11.5-14.5) % Plt Count (140-400) K/mcL MPV (9.4-12.4) fL Immature Gran % (0-4) % Seg Neutrophils % % Lymphocytes % % Monocytes % % Eosinophils % % Basophils % % Neutrophils # (1.6-8.9) K/mcL Lymphocytes # (0.6-4.6) K/mcL Monocytes # (0.0-1.3) K/mcL Eosinophils # (0.0-0.6) K/mcL Basophils # (0.0-0.2) K/mcL Sodium 136 (136-145) mEq/L Potassium 4.1 (3.5-4.5) mEq/L Chloride 107 (98-109) mEq/L Carbon Dioxide 22 (19-29) mEq/L BUN 10 (7-20) mg/dL Creatinine 0.82 (0.57-1.11) mg/dL Est GFR ( Amer) > 60 (> 60) Est GFR (Non-Af Amer) > 60 (> 60) BUN/Creatinine Ratio 12 (6-26) Glucose 111 H (70-99) mg/dL POC Glucose 102 H 92 H (58-89) Calculated Osmolality 282 (280-300) Calcium 8.9 (8.6-10.8) mg/dL Phosphorus 2.4 (2.3-4.7) mg/dL Magnesium 1.9 (1.6-2.6) mg/dL Vital Signs Temp Pulse Resp BP Pulse Ox 06/17/16 11:36 99.0 F 81 16 157/73 93 L 06/17/16 07:22 95 06/17/16 07:15 98.7 F 88 16 145/79 95 06/17/16 04:28 99.0 F 84 18 159/82 98 06/16/16 23:38 98.4 F 83 18 147/81 95 06/16/16 23:34 94 L 06/16/16 21:22 98.2 F 88 18 156/74 96 06/16/16 16:15 98.2 F 88 16 177/83 96 Intake and Output 06/16/16 06/17/16 06/17/16 23:59 07:59 15:59 Intake Total 1000 / 1000 1000 / 1000 100 / 100 Output Total 700 / 700 500 / 500 200 / 200 Balance 300 / 300 500 / 500 -100 / -100 Intake: IV Fluids 1000 / 1000 1000 / 1000 100 / 100 0.9 % Sodium Chloride 1, 1000 / 1000 1000 / 1000 000 ML @ 100 mls/hr IVC . Q10H [facility] Rx#:[id number] INVanz 1,000 MG In 0.9 % 100 / 100 Sodium Chloride (Mini-Bag +) 100 ML @ 100 mls/hr IVPB DAILY [facility] Rx#: [id number] Oral 0 / 0 0 / 0 Output: Urine 700 / 700 500 / 500 200 / 200 Other: Meal NPO # Bowel Movements 0 Weight 91.4 kg Blood Glucose* 98 92 Patient Weight 06/17/16 23:59 Weight 91.4 kg - Attending Attestation I examined this patient and my medical decision-making was reviewed with the JUSTICE COURT DEPUTY CLERK/PA/Advanced Practice Nurse/Resident Physician. I agree with the documented findings, disposition and treatment plan as described except to the extent set forth below.
--- NOTE | 2016-06-17 11:32 | Internal Med Progress Note ---
Date of Encounter: 06/17/16 Time of Encounter: 07:25 - Assessment and plan (1) Colonic diverticular abscess Current Visit: Yes Status: Acute Assessment and plan: Continue conservative management, Clear liquid diet if ok with surgery team, Ok for ice chips (2) Acute diverticulitis Current Visit: Yes Status: Acute Assessment and plan: Continue current antibiotic IV fluid , Lab reviewed . (3) Obesity (BMI 30-39.9) Current Visit: Yes Status: Acute (4) Constipation Current Visit: Yes Assessment and plan: Add colace , close monitoring Qualifiers: Constipation type: slow transit constipation Qualified Code(s): K59.01 - Slow transit constipation - Subjective Interval history: Patient is complaining left LQ abdomen pain 32of 10 in severity better compared to yesterday . No nausea or vomiting. Patient stated that no bowel movement for last 3 days - Constitutional Vitals: Temp Pulse Resp BP Pulse Ox 98.7 F 88 16 145/79 95 06/17/16 07:15 06/17/16 07:15 06/17/16 07:15 06/17/16 07:15 06/17/16 07:22 General appearance: Present: A&O X 3, pleasant, no acute distress - Head Head exam: Present: atraumatic, normocephalic - Respiratory Respiratory exam: Present: CTAB. Absent: accessory muscle use, rales, rhonchi, wheezes - Cardiovascular Cardiovascular exam: Present: RRR, +S1, +S2. Absent: diastolic murmur, gallop, rubs, systolic murmur - GI/Abdominal GI/Abdominal exam: Present: normal bowel sounds, soft, tenderness (Left lower quadrant), no peritoneal signs - Skin Skin exam: Present: dry, intact Internal Medicine: Result - Labs CBC & Chem 7: 06/17/16 04:49 06/17/16 04:49 Labs: Short CBC 06/17/16 Range/Units 04:49 WBC 10.3 (4.3-11.1) K/mcL Hgb 13.1 (11.5-15.4) g/dL Hct 39.2 (35.3-44.9) % Plt Count 296 (140-400) K/mcL Neutrophils # 7.8 (1.6-8.9) K/mcL BMP 06/17/16 04:49 Sodium 136 Potassium 4.1 Chloride 107 Carbon Dioxide 22 BUN 10 Creatinine 0.82 Glucose 111 H Calcium 8.9 Consult Discharge Plan - Plan Referrals: Maldonado Roberto DO [Primary Care Provider] -
[2016-06-17] MEDS: *HR* Promethazine 25 MG/ML VIAL IVP PRN ×3 (13:27→22:30)
[2016-06-18] MEDS: 0.9 % Sodium Chloride 1,000 ML IVC SCH ×2 (03:59→14:32)
[2016-06-18] MEDS: *HR* HYDROmorphone (PF) 1 MG/ML SYRINGE IVP PRN ×3 (04:03→19:55)
[2016-06-18] MEDS: *HR* Heparin 5,000 UNIT/ML VIAL SQ SCH ×2 (05:59→14:32)
[2016-06-18 07:17] LABS: Alanine Aminotransferase 19 Units/L (0-55); Albumin/Globulin Ratio 0.7 (1.1-2.2); Alkaline Phosphatase 101 Units/L (38-126); Aspartate Amino Transferase 19 Units/L (5-34); BUN/Creatinine Ratio 14 (6-26); Bilirubin,Total 0.5 mg/dL (0.2-1.2); Blood Urea Nitrogen 10 mg/dL (7-20); Calcium 8.6 mg/dL (8.6-10.8); Carbon Dioxide 21 mEq/L (19-29); Chloride 107 mEq/L (98-109); Glucose 86 mg/dL (70-99); Osmolality,Calculated 278 (280-300); Potassium 3.7 mEq/L (3.5-4.5); Sodium 135 mEq/L (136-145); Total Protein 6.6 g/dL (6.0-8.3); eGFR For African Americans > 60 (> 60); eGFR For Non-African Americans > 60 (> 60)
[2016-06-18 07:19] LABS: Albumin 2.6 g/dL (3.5-5.0)
[2016-06-18 07:45] LABS: Basophils % 0.4 %; Eosinophils # 0.1 K/mcL (0.0-0.6); Eosinophils % 1.4 %; Hematocrit 36.9 % (35.3-44.9); Hemoglobin 12.3 g/dL (11.5-15.4); Lymphocytes # 1.4 K/mcL (0.6-4.6); Lymphocytes % 18.2 %; Mean Corpuscular HGB Conc 33.3 g/dL (31.6-35.5); Mean Corpuscular Hemoglobin 27.6 pg (28.0-33.3); Mean Corpuscular Volume 82.9 fL (83.0-100.0); Mean Platelet Volume 8.8 fL (9.4-12.4); Monocytes # 0.9 K/mcL (0.0-1.3); Monocytes % 11.2 %; Neutrophils # 5.3 K/mcL (1.6-8.9); Platelet Count 264 K/mcL (140-400); Red Blood Count 4.45 M/mcL (3.82-4.97); Red Cell Distribution Width 12.3 % (11.5-14.5); Segmented Neutrophils % 67.8 %
--- NOTE | 2016-06-18 08:10 | General Surgery Progress Note ---
<Maddie Bob - Last Filed: 06/18/16 08:07> Date of Encounter: 06/18/16 Time of Encounter: 08:08 - Assessment and Plan (1) Acute diverticulitis Current Visit: Yes Status: Acute start clear fluids IV fluids IV antibiotics- Invanz abscess is small and not big enough for drain placement at this time Supportive care and pain control Serial abdominal exams Plan for interval colonoscopy in 6-[address] Richter (2) DVT prophylaxis Current Visit: Yes Status: Acute subcutaneous heparin Subjective Patient reports: pain is less, voiding w/o difficulty, flatus, no bowel movement , afebrile Objective Vital Signs - Last 8 Hours Temp Pulse Resp BP Pulse Ox 06/18/16 06:53 99.2 F 86 16 153/80 96 06/18/16 00:12 97.9 F 89 16 128/75 94 L Intake and Output 06/17/16 06/18/16 06/18/16 23:59 07:59 15:59 Intake Total 0 / 0 1000 / 1000 Output Total 450 / 450 600 / 600 Balance -450 / -450 400 / 400 Intake: IV Fluids 1000 / 1000 0.9 % Sodium Chloride 1, 1000 / 1000 000 ML @ 100 mls/hr IVC . Q10H [facility] Rx#:[id number] Oral 0 / 0 0 / 0 Output: Urine 450 / 450 600 / 600 Other: Meal npo # Bowel Movements 0 Blood Glucose* 86 83 - General physical appearance well developed, well nourished, no distress - Eyes PERRL, normal ocular movement - ENT atraumatic, normocephalic - Neck Neck exam: trachea midline - Respiratory normal expansion, clear to auscultation - Cardiovascular Cardiovascular exam: Present: RRR - Abdomen Abdomen: Present: bowel sounds present, soft, tender (mild) Abdominal Tenderness: suprapubic - Neurologic CN 2-12 grossly intact - Psychiatric oriented to time, oriented to person, oriented to place, speech is normal, memory intact - Labs 06/18/16 06:58 06/18/16 06:58 Diabetes panel 06/18/16 Range/Units 06:58 Sodium 135 L (136-145) mEq/L Potassium 3.7 (3.5-4.5) mEq/L Chloride 107 (98-109) mEq/L Carbon Dioxide 21 (19-29) mEq/L BUN 10 (7-20) mg/dL Creatinine 0.70 (0.57-1.11) mg/dL Glucose 86 (70-99) mg/dL Calcium 8.6 (8.6-10.8) mg/dL AST 19 (5-34) Units/L ALT 19 (0-55) Units/L Alkaline Phosphatase 101 (38-126) Units/L Albumin 2.6 L D (3.5-5.0) g/dL Calcium panel 06/18/16 Range/Units 06:58 Calcium 8.6 (8.6-10.8) mg/dL Albumin 2.6 L D (3.5-5.0) g/dL Pituitary panel 06/18/16 Range/Units 06:58 Sodium 135 L (136-145) mEq/L Potassium 3.7 (3.5-4.5) mEq/L Chloride 107 (98-109) mEq/L Carbon Dioxide 21 (19-29) mEq/L BUN 10 (7-20) mg/dL Creatinine 0.70 (0.57-1.11) mg/dL Glucose 86 (70-99) mg/dL Calcium 8.6 (8.6-10.8) mg/dL Adrenal panel 06/18/16 Range/Units 06:58 Sodium 135 L (136-145) mEq/L Potassium 3.7 (3.5-4.5) mEq/L Chloride 107 (98-109) mEq/L Carbon Dioxide 21 (19-29) mEq/L BUN 10 (7-20) mg/dL Creatinine 0.70 (0.57-1.11) mg/dL Glucose 86 (70-99) mg/dL Calcium 8.6 (8.6-10.8) mg/dL Total Bilirubin 0.5 (0.2-1.2) mg/dL AST 19 (5-34) Units/L ALT 19 (0-55) Units/L Alkaline Phosphatase 101 (38-126) Units/L Albumin 2.6 L D (3.5-5.0) g/dL Consult Discharge Plan - Plan Referrals: Maldonado Roberto, [Primary Care Provider] - <Joana Richter - Last Filed: 06/18/16 11:38> Date of Encounter: 06/18/16 Time of Encounter: 10:00 - Assessment and Plan (1) Acute diverticulitis Current Visit: Yes Status: Acute start clears plan CT scan tomorrow (2) Colonic diverticular abscess Current Visit: Yes Status: Acute continue IV abx Subjective Patient reports: no new complaints, feels better, still having pain, pain is less, voiding w/o difficulty, flatus, no bowel movement, afebrile Objective Vital Signs - Last 8 Hours Temp Pulse Resp BP Pulse Ox 06/18/16 10:49 99.1 F 83 16 138/81 95 06/18/16 06:53 99.2 F 86 16 153/80 96 Intake and Output 06/17/16 06/18/16 06/18/16 23:59 07:59 15:59 Intake Total 0 / 0 1000 / 1000 240 / 240 Output Total 450 / 450 600 / 600 650 / 650 Balance -450 / -450 400 / 400 -410 / -410 Intake: IV Fluids 1000 / 1000 0.9 % Sodium Chloride 1, 1000 / 1000 000 ML @ 100 mls/hr IVC . Q10H [facility] Rx#:[id number] Oral 0 / 0 0 / 0 240 / 240 Output: Urine 450 / 450 600 / 600 650 / 650 Other: Meal npo Clear # Bowel Movements 0 0 Blood Glucose* 86 83 - General physical appearance well developed, well nourished, no distress, no pain - Eyes PERRL, normal ocular movement - ENT dry mucosa, atraumatic, normocephalic - Neck Neck exam: trachea midline - Respiratory normal expansion, clear to auscultation - Cardiovascular Cardiovascular exam: Present: RRR - Abdomen Abdomen: Present: bowel sounds present, soft, tender Abdominal Tenderness: LLQ, suprapubic - Integumentary no rash, no growths - Neurologic CN 2-12 grossly intact - Musculoskeletal normal posture - Psychiatric oriented to time, oriented to person, oriented to place, memory intact - Labs 06/18/16 06:58 06/18/16 06:58 Short CBC 06/18/16 Range/Units 06:58 WBC 7.8 (4.3-11.1) K/mcL Hgb 12.3 (11.5-15.4) g/dL Hct 36.9 (35.3-44.9) % Plt Count 264 (140-400) K/mcL Neutrophils # 5.3 (1.6-8.9) K/mcL BMP 06/18/16 Range/Units 06:58 Sodium 135 L (136-145) mEq/L Potassium 3.7 (3.5-4.5) mEq/L Chloride 107 (98-109) mEq/L Carbon Dioxide 21 (19-29) mEq/L BUN 10 (7-20) mg/dL Creatinine 0.70 (0.57-1.11) mg/dL Glucose 86 (70-99) mg/dL Calcium 8.6 (8.6-10.8) mg/dL Liver Function 06/18/16 Range/Units 06:58 Total Bilirubin 0.5 (0.2-1.2) mg/dL AST 19 (5-34) Units/L ALT 19 (0-55) Units/L Alkaline Phosphatase 101 (38-126) Units/L Albumin 2.6 L D (3.5-5.0) g/dL Vital Signs Temp Pulse Resp BP Pulse Ox 06/18/16 10:49 99.1 F 83 16 138/81 95 06/18/16 06:53 99.2 F 86 16 153/80 96 06/18/16 00:12 97.9 F 89 16 128/75 94 L 06/17/16 19:53 99.3 F 88 16 136/75 96 Intake and Output 06/17/16 06/18/16 06/18/16 23:59 07:59 15:59 Intake Total 0 / 0 1000 / 1000 240 / 240 Output Total 450 / 450 600 / 600 650 / 650 Balance -450 / -450 400 / 400 -410 / -410 Intake: IV Fluids 1000 / 1000 0.9 % Sodium Chloride 1, 1000 / 1000 000 ML @ 100 mls/hr IVC . Q10H [facility] Rx#:[id number] Oral 0 / 0 0 / 0 240 / 240 Output: Urine 450 / 450 600 / 600 650 / 650 Other: Meal npo Clear # Bowel Movements 0 0 Blood Glucose* 86 83 - Attending Attestation I examined this patient and my medical decision-making was reviewed with the CASTING WHEEL OPERATOR HELPER/PA/Advanced Practice Nurse/Resident Physician. I agree with the documented findings, disposition and treatment plan as described except to the extent set forth below.
[2016-06-18] MEDS: Ertapenem 1,000 MG in 0.9 % Sodium Chloride Mini Bag 100 ML IVPB SCH (08:46)
--- NOTE | 2016-06-18 11:17 | Internal Med Progress Note ---
Date of Encounter: 06/18/16 Time of Encounter: 08:00 - Assessment and plan (1) Colonic diverticular abscess Current Visit: Yes Status: Acute (2) Acute diverticulitis Current Visit: Yes Status: Acute Assessment and plan: Continue current antibiotic IV fluid , Lab reviewed . Advance diet to full liquid diet, many soft diet tomorrow morning, possible discharge next 24-hour, awaiting surgery input if need any repeat imaging inpatient versus outpatient (3) Obesity (BMI 30-39.9) Current Visit: Yes Status: Acute (4) Constipation Current Visit: Yes Assessment and plan: Add senna and mirlax Qualifiers: Constipation type: slow transit constipation Qualified Code(s): K59.01 - Slow transit constipation - Subjective Interval history: Patient stated her left lower quadrant pain improved. Patient tolerated her clear liquid diet. Patient denies any fever or chills. Patient stated she did not have bowel movement LAST 4 days - Constitutional Vitals: Temp Pulse Resp BP Pulse Ox 99.1 F 83 16 138/81 95 06/18/16 10:49 06/18/16 10:49 06/18/16 10:49 06/18/16 10:49 06/18/16 10:49 General appearance: Present: A&O X 3, pleasant, no acute distress - Head Head exam: Present: atraumatic, normocephalic - Neck Neck exam general surgery: Present: supple, trachea midline. Absent: lymphadenopathy - Respiratory Respiratory exam: Present: CTAB. Absent: accessory muscle use, rales, rhonchi, wheezes - Cardiovascular Cardiovascular exam: Present: RRR, +S1, +S2. Absent: diastolic murmur, gallop, rubs, systolic murmur - GI/Abdominal GI/Abdominal exam: Present: normal bowel sounds, soft, tenderness (Tenderness left lower quadrant), no peritoneal signs. Absent: distended - Extremities Exam Extremities exam: Present: warm, radial pulses palpable and symetrical. Absent : calf tenderness, cyanotic, pedal edema - Skin Skin exam: Present: dry, intact Internal Medicine: Result - Labs CBC & Chem 7: 06/18/16 06:58 06/18/16 06:58 Labs: Short CBC 06/18/16 Range/Units 06:58 WBC 7.8 (4.3-11.1) K/mcL Hgb 12.3 (11.5-15.4) g/dL Hct 36.9 (35.3-44.9) % Plt Count 264 (140-400) K/mcL Neutrophils # 5.3 (1.6-8.9) K/mcL BMP 06/18/16 06:58 Sodium 135 L Potassium 3.7 Chloride 107 Carbon Dioxide 21 BUN 10 Creatinine 0.70 Glucose 86 Calcium 8.6 Liver Function 06/18/16 Range/Units 06:58 Total Bilirubin 0.5 (0.2-1.2) mg/dL AST 19 (5-34) Units/L ALT 19 (0-55) Units/L Alkaline Phosphatase 101 (38-126) Units/L Albumin 2.6 L D (3.5-5.0) g/dL Consult Discharge Plan - Plan Referrals: Maldonado Roberto DO [Primary Care Provider] -
[2016-06-18] MEDS ORDERED: Sennosides 8.6 MG TABLET PO PRN (11:23)
[2016-06-18] MEDS: *HR* Promethazine 25 MG/ML VIAL IVP PRN (19:55)
[2016-06-18] MEDS ORDERED: Acetaminophen 325 MG TABLET PO PRN (20:29)
[2016-06-19] MEDS: *HR* Heparin 5,000 UNIT/ML VIAL SQ SCH ×4 (00:33→21:42)
[2016-06-19] MEDS: 0.9 % Sodium Chloride 1,000 ML IVC SCH ×3 (00:33→21:56)
[2016-06-19] MEDS: *HR* HYDROmorphone (PF) 1 MG/ML SYRINGE IVP PRN ×3 (00:43→21:42)
[2016-06-19] MEDS: Ertapenem 1,000 MG in 0.9 % Sodium Chloride Mini Bag 100 ML IVPB SCH (08:00)
[2016-06-19 09:11] LABS: INR 1.5; Prothrombin Time 15.8 Seconds (9.4-12.1)
--- NOTE | 2016-06-19 09:16 | Internal Med Progress Note ---
Date of Encounter: 06/19/16 Time of Encounter: 08:30 - Assessment and plan (1) Colonic diverticular abscess Current Visit: Yes Status: Acute Assessment and plan: Continue conservative management, regular diet per surgery recommendation (2) Acute diverticulitis Current Visit: Yes Status: Acute Assessment and plan: Continue current antibiotic , repeat CAT scan today. per surgery. Based on CAT scan report and based on surgery recommendation possible discharge in next 24 hours. Awaiting surgery input (3) Obesity (BMI 30-39.9) Current Visit: Yes Status: Acute (4) Constipation Current Visit: Yes Assessment and plan: Add lactulose Qualifiers: Constipation type: slow transit constipation Qualified Code(s): K59.01 - Slow transit constipation - Time Spent With Patient 25 - 35 minutes (Discussed with patient about risk of constipation with diverticulosis. Counseling on fluids) - Subjective Interval history: Patient stated her left lower quadrant pain improved. Patient tolerated liquid diet. Patient denies any fever or chills. Patient stated she hasnot had any bowel movement yet . Complains of bloating like sensation - Constitutional Vitals: Temp Pulse Resp BP Pulse Ox 98.5 F 75 16 132/79 96 06/19/16 05:57 06/19/16 05:57 06/19/16 05:57 06/19/16 05:57 06/19/16 05:57 General appearance: Present: pleasant, no acute distress - Neck Neck exam general surgery: Present: supple, trachea midline. Absent: lymphadenopathy - Respiratory Respiratory exam: Present: CTAB. Absent: accessory muscle use, rales, rhonchi, wheezes - Cardiovascular Cardiovascular exam: Present: RRR, +S1, +S2. Absent: diastolic murmur, gallop, rubs, systolic murmur - GI/Abdominal GI/Abdominal exam: Present: normal bowel sounds, soft, tenderness (Bilateral lower quadrant area without), no peritoneal signs Internal Medicine: Result - Labs CBC & Chem 7: 06/18/16 06:58 06/18/16 06:58 - ABG Interpretation ABG results: PT/INR, D-dimer PT 15.8 Seconds (9.4-12.1) H 06/19/16 08:58 - Impressions Impressions Abdomen/Pelvis CT 06/19/16 06:58 IMPRESSION: 1. Sigmoid diverticulitis with increasing size 7.2 x 9 x 10 cm complex fluid collection suggests abscess. 2. Left renal pelvicaliectasis with distention of the left ureter. This appears to be compressed body pelvic and left lower quadrant abdominal abscess. D/ / 06/19/2016 08:03:23 Hussain Lo MD / sharon Interpreting Provider: Hussain Lo MD Consult Discharge Plan - Plan Referrals: Maldonado Roberto DO [Primary Care Provider] -
[2016-06-19] MEDS ORDERED: Simethicone 80 MG TAB.CHEW PO PRN (10:13)
[2016-06-19] MEDS ORDERED: Lactulose Oral Soln 20 GM/30 ML UDC PO ONE (10:13)
[2016-06-19] MEDS: *HR* Promethazine 25 MG/ML VIAL IVP PRN ×2 (11:36→21:42)
[2016-06-19 11:44] LABS: Hematocrit 36.5 % (35.3-44.9); Hemoglobin 12.2 g/dL (11.5-15.4); Mean Corpuscular Volume 83.7 fL (83.0-100.0); Red Blood Count 4.36 M/mcL (3.82-4.97)
[2016-06-19 11:45] LABS: Basophils % 0.4 %; Eosinophils # 0.1 K/mcL (0.0-0.6); Lymphocytes # 1.4 K/mcL (0.6-4.6); Lymphocytes % 26.4 %; Mean Corpuscular HGB Conc 33.4 g/dL (31.6-35.5); Monocytes # 0.7 K/mcL (0.0-1.3); Monocytes % 12.9 %; Neutrophils # 2.9 K/mcL (1.6-8.9); Platelet Count 266 K/mcL (140-400); Red Cell Distribution Width 12.4 % (11.5-14.5); Segmented Neutrophils % 57.3 %
[2016-06-19 11:52] LABS: BUN/Creatinine Ratio 10 (6-26); Blood Urea Nitrogen 7 mg/dL (7-20); Calcium 8.6 mg/dL (8.6-10.8); Carbon Dioxide 26 mEq/L (19-29); Chloride 107 mEq/L (98-109); Glucose 137 mg/dL (70-99); Osmolality,Calculated 288 (280-300); Potassium 3.4 mEq/L (3.5-4.5); Sodium 139 mEq/L (136-145); eGFR For African Americans > 60 (> 60); eGFR For Non-African Americans > 60 (> 60)
--- NOTE | 2016-06-19 12:12 | General Surgery Progress Note ---
<Maddie Bob - Last Filed: 06/19/16 12:09> Date of Encounter: 06/19/16 Time of Encounter: 12:09 - Assessment and Plan (1) Acute diverticulitis Current Visit: Yes Status: Acute full liquid diet, NPO at midnight IV fluids IV antibiotics- Invanz plan for percutaneous abscess drainage tomorrow Supportive care and pain control Serial abdominal exams Plan for interval colonoscopy in 6-[address] Richter (2) Colonic diverticular abscess Current Visit: Yes Status: Acute IV antibiotics- Invanz CT shows growth of abscess plan for percutaneous abscess drainage tomorrow (3) DVT prophylaxis Current Visit: Yes Status: Acute subcutaneous heparin Subjective Patient reports: feels better, voiding w/o difficulty, bowel movement, afebrile Objective Vital Signs - Last 8 Hours Temp Pulse Resp BP Pulse Ox 06/19/16 10:27 97.9 F 89 16 132/77 93 L 06/19/16 05:57 98.5 F 75 16 132/79 96 Intake and Output 06/18/16 06/19/16 06/19/16 23:59 07:59 15:59 Intake Total 120 / 120 1444 / 1444 876 / 876 Output Total 0 / 0 900 / 900 1050 / 1050 Balance 120 / 120 544 / 544 -174 / -174 Intake: IV Fluids 1444 / 1444 556 / 556 0.9 % Sodium Chloride 1, 1444 / 1444 556 / 556 000 ML @ 100 mls/hr IVC . Q10H [facility] Rx#:[id number] Oral 120 / 120 0 / 0 320 / 320 Output: Urine 0 / 0 900 / 900 1050 / 1050 Other: Meal Dinner Breakfast Percent of Meal Consumed 25% 100% Stool Size Moderate Stool Consistency soft Stool Color Brown - General physical appearance well developed, well nourished, no distress - Eyes PERRL, normal ocular movement - ENT normal mucosa, atraumatic, normocephalic - Neck Neck exam: trachea midline - Respiratory normal respiratory effort, clear to auscultation - Cardiovascular Cardiovascular exam: Present: RRR - Abdomen Abdomen: Present: bowel sounds present, soft, tender (mild) Abdominal Tenderness: suprapubic - Integumentary no rash - Neurologic CN 2-12 grossly intact - Psychiatric oriented to time, oriented to person, oriented to place, speech is normal, memory intact - Labs 06/19/16 08:58 06/19/16 08:58 Diabetes panel 06/19/16 Range/Units 08:58 Sodium 139 (136-145) mEq/L Potassium 3.4 L (3.5-4.5) mEq/L Chloride 107 (98-109) mEq/L Carbon Dioxide 26 (19-29) mEq/L BUN 7 (7-20) mg/dL Creatinine 0.73 (0.57-1.11) mg/dL Glucose 137 H (70-99) mg/dL Calcium 8.6 (8.6-10.8) mg/dL Calcium panel 06/19/16 Range/Units 08:58 Calcium 8.6 (8.6-10.8) mg/dL Pituitary panel 06/19/16 Range/Units 08:58 Sodium 139 (136-145) mEq/L Potassium 3.4 L (3.5-4.5) mEq/L Chloride 107 (98-109) mEq/L Carbon Dioxide 26 (19-29) mEq/L BUN 7 (7-20) mg/dL Creatinine 0.73 (0.57-1.11) mg/dL Glucose 137 H (70-99) mg/dL Calcium 8.6 (8.6-10.8) mg/dL Adrenal panel 06/19/16 Range/Units 08:58 Sodium 139 (136-145) mEq/L Potassium 3.4 L (3.5-4.5) mEq/L Chloride 107 (98-109) mEq/L Carbon Dioxide 26 (19-29) mEq/L BUN 7 (7-20) mg/dL Creatinine 0.73 (0.57-1.11) mg/dL Glucose 137 H (70-99) mg/dL Calcium 8.6 (8.6-10.8) mg/dL Consult Discharge Plan - Plan Referrals: Maldonado Roberto, [Primary Care Provider] - <Joana Richter - Last Filed: 06/20/16 13:20> - Assessment and Plan (1) Acute diverticulitis Current Visit: Yes Status: Acute CT repeated and shows enlargement of intra-abdominal abscess to 10 cm, will place IR drain continue Abx continue diet prn pain control (2) Colonic diverticular abscess Current Visit: Yes Status: Acute Subjective Narrative: pain improved complains of multiple bowel movements due to lactulose no nausea or emesis Objective Vital Signs - Last 8 Hours Temp Pulse Resp BP Pulse Ox 06/20/16 12:56 79 12 152/82 98 06/20/16 12:51 81 18 147/73 06/20/16 11:39 97.8 F 73 16 127/81 95 06/20/16 06:26 98.0 F 76 14 132/73 96 Intake and Output 06/19/16 06/20/16 06/20/16 23:59 07:59 15:59 Intake Total 1220 / 1220 1000 / 1000 Output Total 1000 / 1000 350 / 350 1200 / 1200 Balance 220 / 220 650 / 650 -1200 / -1200 Intake: IV Fluids 1100 / 1100 1000 / 1000 0.9 % Sodium Chloride 1, 1000 / 1000 1000 / 1000 000 ML @ 100 mls/hr IVC . Q10H [facility] Rx#:[id number] INVanz 1,000 MG In 0.9 % 100 / 100 Sodium Chloride (Mini-Bag +) 100 ML @ 100 mls/hr IVPB DAILY [facility] Rx#: [id number] Oral 120 / 120 Output: Urine 1000 / 1000 350 / 350 1200 / 1200 Other: Meal Dinner NPO Percent of Meal Consumed 100% Weight 89.539 kg Blood Glucose* 95 112 Patient Weight 06/20/16 23:59 Weight 89.539 kg - General physical appearance well developed, well nourished, no distress, no pain - Eyes PERRL, normal ocular movement - ENT normal mucosa, atraumatic, normocephalic - Neck Neck exam: trachea midline - Respiratory normal expansion, clear to auscultation - Cardiovascular Cardiovascular exam: Present: RRR - Abdomen Abdomen: Present: bowel sounds present, soft, tender - Integumentary no rash, no growths - Neurologic CN 2-12 grossly intact - Musculoskeletal normal posture - Psychiatric oriented to time, oriented to person, speech is normal, memory intact - Labs 06/19/16 08:58 06/20/16 05:12 Diabetes panel 06/20/16 Range/Units 05:12 Sodium 140 (136-145) mEq/L Potassium 3.8 (3.5-4.5) mEq/L Chloride 110 H (98-109) mEq/L Carbon Dioxide 23 (19-29) mEq/L BUN 5 L (7-20) mg/dL Creatinine 0.73 (0.57-1.11) mg/dL Glucose 90 (70-99) mg/dL Calcium 8.6 (8.6-10.8) mg/dL Calcium panel 06/20/16 Range/Units 05:12 Calcium 8.6 (8.6-10.8) mg/dL Pituitary panel 06/20/16 Range/Units 05:12 Sodium 140 (136-145) mEq/L Potassium 3.8 (3.5-4.5) mEq/L Chloride 110 H (98-109) mEq/L Carbon Dioxide 23 (19-29) mEq/L BUN 5 L (7-20) mg/dL Creatinine 0.73 (0.57-1.11) mg/dL Glucose 90 (70-99) mg/dL Calcium 8.6 (8.6-10.8) mg/dL Adrenal panel 06/20/16 Range/Units 05:12 Sodium 140 (136-145) mEq/L Potassium 3.8 (3.5-4.5) mEq/L Chloride 110 H (98-109) mEq/L Carbon Dioxide 23 (19-29) mEq/L BUN 5 L (7-20) mg/dL Creatinine 0.73 (0.57-1.11) mg/dL Glucose 90 (70-99) mg/dL Calcium 8.6 (8.6-10.8) mg/dL - Attending Attestation I examined this patient and my medical decision-making was reviewed with the INVENTORY ACCOUNTANT/PA/Advanced Practice Nurse/Resident Physician. I agree with the documented findings, disposition and treatment plan as described except to the extent set forth below.
[2016-06-20] MEDS: *HR* Heparin 5,000 UNIT/ML VIAL SQ SCH ×2 (06:05→15:29)
[2016-06-20 06:31] LABS: BUN/Creatinine Ratio 7 (6-26); Calcium 8.6 mg/dL (8.6-10.8); Carbon Dioxide 23 mEq/L (19-29); Chloride 110 mEq/L (98-109); Glucose 90 mg/dL (70-99); Osmolality,Calculated 287 (280-300); Potassium 3.8 mEq/L (3.5-4.5); Sodium 140 mEq/L (136-145); eGFR For African Americans > 60 (> 60); eGFR For Non-African Americans > 60 (> 60)
[2016-06-20 06:33] LABS: Blood Urea Nitrogen 5 mg/dL (7-20)
[2016-06-20] MEDS: Ertapenem 1,000 MG in 0.9 % Sodium Chloride Mini Bag 100 ML IVPB SCH (07:44)
[2016-06-20] MEDS: 0.9 % Sodium Chloride 1,000 ML IVC SCH (07:51)
--- NOTE | 2016-06-20 12:12 | General Surgery Progress Note ---
<Yolande Judge - Last Filed: 06/20/16 12:12> Date of Encounter: 06/20/16 Time of Encounter: 11:30 - Assessment and Plan (1) Acute diverticulitis Current Visit: Yes Status: Acute IR drainage of intra-abdominal abscess today- notified per myself IV antibiotics supportive care and pain control Low residue diet- environmental science program director consult for diet education Interval colonoscopy in 6-[address] Richter (2) DVT prophylaxis Current Visit: Yes Status: Acute Continue heparin 5,000 units SQ twice daily for DVT prophylaxis Subjective Patient reports: feels better, tolerating a regular diet, voiding w/o difficulty , flatus, bowel movement, afebrile Objective Vital Signs - Last 8 Hours Temp Pulse Resp BP Pulse Ox 06/20/16 11:39 97.8 F 73 16 127/81 95 06/20/16 06:26 98.0 F 76 14 132/73 96 06/20/16 04:13 98.0 F 76 16 136/85 96 Intake and Output 06/19/16 06/20/16 06/20/16 23:59 07:59 15:59 Intake Total 1220 / 1220 1000 / 1000 Output Total 1000 / 1000 350 / 350 1200 / 1200 Balance 220 / 220 650 / 650 -1200 / -1200 Intake: IV Fluids 1100 / 1100 1000 / 1000 0.9 % Sodium Chloride 1, 1000 / 1000 1000 / 1000 000 ML @ 100 mls/hr IVC . Q10H [facility] Rx#:[id number] INVanz 1,000 MG In 0.9 % 100 / 100 Sodium Chloride (Mini-Bag +) 100 ML @ 100 mls/hr IVPB DAILY [facility] Rx#: [id number] Oral 120 / 120 Output: Urine 1000 / 1000 350 / 350 1200 / 1200 Other: Meal Dinner NPO Percent of Meal Consumed 100% Weight 89.539 kg Blood Glucose* 95 112 Patient Weight 06/20/16 23:59 Weight 89.539 kg - General physical appearance well developed, well nourished, no distress, no pain - Eyes normal ocular movement - ENT normal mucosa, atraumatic, normocephalic - Neck Neck exam: trachea midline - Respiratory normal expansion, normal respiratory effort, clear to auscultation - Cardiovascular Cardiovascular exam: Present: RRR - Abdomen Abdomen: Present: bowel sounds present, soft, tender Abdominal Tenderness: suprapubic - Integumentary no rash, no growths, no abnormal pigmentation - Neurologic CN 2-12 grossly intact - Musculoskeletal normal gait, normal posture - Psychiatric oriented to time, oriented to person, oriented to place, speech is normal, memory intact - Labs 06/19/16 08:58 06/20/16 05:12 Diabetes panel 06/20/16 Range/Units 05:12 Sodium 140 (136-145) mEq/L Potassium 3.8 (3.5-4.5) mEq/L Chloride 110 H (98-109) mEq/L Carbon Dioxide 23 (19-29) mEq/L BUN 5 L (7-20) mg/dL Creatinine 0.73 (0.57-1.11) mg/dL Glucose 90 (70-99) mg/dL Calcium 8.6 (8.6-10.8) mg/dL Calcium panel 06/20/16 Range/Units 05:12 Calcium 8.6 (8.6-10.8) mg/dL Pituitary panel 06/20/16 Range/Units 05:12 Sodium 140 (136-145) mEq/L Potassium 3.8 (3.5-4.5) mEq/L Chloride 110 H (98-109) mEq/L Carbon Dioxide 23 (19-29) mEq/L BUN 5 L (7-20) mg/dL Creatinine 0.73 (0.57-1.11) mg/dL Glucose 90 (70-99) mg/dL Calcium 8.6 (8.6-10.8) mg/dL Adrenal panel 06/20/16 Range/Units 05:12 Sodium 140 (136-145) mEq/L Potassium 3.8 (3.5-4.5) mEq/L Chloride 110 H (98-109) mEq/L Carbon Dioxide 23 (19-29) mEq/L BUN 5 L (7-20) mg/dL Creatinine 0.73 (0.57-1.11) mg/dL Glucose 90 (70-99) mg/dL Calcium 8.6 (8.6-10.8) mg/dL Consult Discharge Plan - Plan Instructions: Low Fiber Diet (GEN) Referrals: Maldonado Roberto DO [Primary Care Provider] - Joana Richter MD [Partnered Physician] - (2 wks) - Attending Attestation I examined this patient and my medical decision-making was reviewed with the DRAPERY MAKER/PA/Advanced Practice Nurse/Resident Physician. I agree with the documented findings, disposition and treatment plan as described except to the extent set forth below. <Joana Richter - Last Filed: 06/20/16 13:22> - Assessment and Plan (1) Acute diverticulitis Current Visit: Yes Status: Acute (2) Colonic diverticular abscess Current Visit: Yes Status: Acute IR to place intrpelvic abscess drain continue Abx Subjective Patient reports: feels better, tolerating a regular diet, voiding w/o difficulty , flatus, bowel movement, afebrile Objective Vital Signs - Last 8 Hours Temp Pulse Resp BP Pulse Ox 06/20/16 12:56 79 12 152/82 98 06/20/16 12:51 81 18 147/73 06/20/16 11:39 97.8 F 73 16 127/81 95 06/20/16 06:26 98.0 F 76 14 132/73 96 Intake and Output 06/19/16 06/20/16 06/20/16 23:59 07:59 15:59 Intake Total 1220 / 1220 1000 / 1000 Output Total 1000 / 1000 350 / 350 1200 / 1200 Balance 220 / 220 650 / 650 -1200 / -1200 Intake: IV Fluids 1100 / 1100 1000 / 1000 0.9 % Sodium Chloride 1, 1000 / 1000 1000 / 1000 000 ML @ 100 mls/hr IVC . Q10H [facility] Rx#:[id number] INVanz 1,000 MG In 0.9 % 100 / 100 Sodium Chloride (Mini-Bag +) 100 ML @ 100 mls/hr IVPB DAILY [facility] Rx#: [id number] Oral 120 / 120 Output: Urine 1000 / 1000 350 / 350 1200 / 1200 Other: Meal Dinner NPO Percent of Meal Consumed 100% Weight 89.539 kg Blood Glucose* 95 112 Patient Weight 06/20/16 23:59 Weight 89.539 kg - General physical appearance well developed, well nourished, no distress, no pain - Eyes PERRL, normal ocular movement - ENT atraumatic, normocephalic - Neck Neck exam: trachea midline - Respiratory normal expansion, clear to auscultation - Cardiovascular Cardiovascular exam: Present: RRR - Abdomen Abdomen: Present: bowel sounds present, soft, tender - Integumentary no rash, no growths - Neurologic CN 2-12 grossly intact - Musculoskeletal normal posture - Psychiatric oriented to time, oriented to person, speech is normal, memory intact - Labs 06/19/16 08:58 06/20/16 05:12 Diabetes panel 06/20/16 Range/Units 05:12 Sodium 140 (136-145) mEq/L Potassium 3.8 (3.5-4.5) mEq/L Chloride 110 H (98-109) mEq/L Carbon Dioxide 23 (19-29) mEq/L BUN 5 L (7-20) mg/dL Creatinine 0.73 (0.57-1.11) mg/dL Glucose 90 (70-99) mg/dL Calcium 8.6 (8.6-10.8) mg/dL Calcium panel 06/20/16 Range/Units 05:12 Calcium 8.6 (8.6-10.8) mg/dL Pituitary panel 06/20/16 Range/Units 05:12 Sodium 140 (136-145) mEq/L Potassium 3.8 (3.5-4.5) mEq/L Chloride 110 H (98-109) mEq/L Carbon Dioxide 23 (19-29) mEq/L BUN 5 L (7-20) mg/dL Creatinine 0.73 (0.57-1.11) mg/dL Glucose 90 (70-99) mg/dL Calcium 8.6 (8.6-10.8) mg/dL Adrenal panel 06/20/16 Range/Units 05:12 Sodium 140 (136-145) mEq/L Potassium 3.8 (3.5-4.5) mEq/L Chloride 110 H (98-109) mEq/L Carbon Dioxide 23 (19-29) mEq/L BUN 5 L (7-20) mg/dL Creatinine 0.73 (0.57-1.11) mg/dL Glucose 90 (70-99) mg/dL Calcium 8.6 (8.6-10.8) mg/dL - Imaging CT scan - abdomen: report reviewed, image reviewed CT scan - pelvis: report reviewed, image reviewed
[2016-06-20] MEDS ORDERED: *HR* Midazolam HCl 2 MG/2 ML VIAL IV PRN (12:34)
[2016-06-20] MEDS ORDERED: *HR* FentaNYL (PF) 100 MCG/2 ML VIAL IV PRN (12:34)
--- NOTE | 2016-06-20 12:35 | Pre-Sedation Evaluation ---
Pre-sedation evaluation - Pre-sedation checklist Date of procedure: 06/20/16 Procedure: abscrss drainage Recent Vitals: Last Vital Signs Temp 97.8 F 06/20/16 11:39 Pulse 73 06/20/16 11:39 Resp 16 06/20/16 11:39 BP 127/81 06/20/16 11:39 Pulse Ox 95 06/20/16 11:39 Airway Assessment: Patient can open mouth completely, TMJ function normal, Micrognathia (under-bite, receding chin) absent, Neck with adequate range of motion Possible difficult airway: No ASA Classification *see protocol: CLASS II-Mild systemic disease Plan of Care: Pt appropriate candidate for procedure/moderate/conscious sedation , Risks/benefits of procedure/sedation discussed w/ patient/family
[2016-06-20] MEDS ORDERED: 0.9 % Sodium Chloride 500 ML ONE (12:46)
--- NOTE | 2016-06-20 14:16 | IR Procedure Note ---
Date of procedure: 06/20/16 Consent Obtained: Written consent Timeout: Correct patient and procedure verified, Correct site verified, Time out performed, Skin prep completed Indications: Pelvic fluid collection Procedure Performed: Aspiration Site/Technique: pelvis, left Results/Findings: clear fluid, drained 120cc, sent for C&S Estimated blood loss (cc): 0 Complications: None; Tolerated procedure well Post Procedure Treatment Plan: dc to floor
--- NOTE | 2016-06-20 14:41 | Discharge Summary ---
Date of Encounter: 06/20/16 Time of Encounter: 14:37 - Discharge Diagnosis (1) Acute diverticulitis Priority: Primary Status: Acute (2) DVT prophylaxis Priority: Secondary Status: Acute - Discharge Medications Prescriptions: Ciprofloxacin HCl [Cipro] 500 mg PO BID #18 tablet MetroNIDAZOLE [Flagyl] 500 mg PO TID #27 tablet Home Medications: Ciprofloxacin [Cipro] 500 mg PO BID 06/15/16 [History] MetroNIDAZOLE [Flagyl] 500 mg PO Q8H 06/15/16 [History] Ciprofloxacin HCl [Cipro] 500 mg PO BID #18 tablet 06/20/16 [Rx] MetroNIDAZOLE [Flagyl] 500 mg PO TID #27 tablet 06/20/16 [Rx] Allergies/Adverse Reactions: Allergies meperidine [From Demerol] Adverse Reaction (Verified 06/15/16 17:22) Vomiting morphine Adverse Reaction (Verified 06/15/16 17:22) Vomiting General Surgery Exam Initial Vital Signs Temp Pulse Resp BP Pulse Ox 98.3 F 96 16 164/106 98 06/15/16 17:18 06/15/16 17:18 06/15/16 17:18 06/15/16 17:18 06/15/16 17:18 - General physical appearance well developed, well nourished, no distress - Eyes PERRL, normal ocular movement - ENT normal mucosa, atraumatic, normocephalic - Neck trachea midline - Respiratory normal expansion, normal respiratory effort, clear to auscultation - Cardiovascular Cardiovascular exam: Present: RRR, 15, 16 - Abdomen Abdomen general surgery: Present: bowel sounds present, soft, non tender - Integumentary Integumentary general surgery: Present: warm and dry, no abnormal pigmentation - Neurologic Present: CN 2-12 grossly intact - Musculoskeletal Present: normal gait, normal posture - Psychiatric Psychiatric general surgery: Present: appropriate, oriented to person, oriented to place, oriented to time, speech is normal, memory intact Date of admission: 06/16/16 01:27 Primary care physician: Maldonado Roberto, Consults: 06/20/16 10:29 Consult to Interventional Radiology [CONS] Stat Consulting Provider: Radiology Interventional Cols Reason for Consult: intra-abd abscess Call Completed: Yes 06/20/16 12:14 consult to security shift supervisor [Consult to Nutrition] [CONS] Routine Comment: Low residue diet education Consulting Provider: NUTRITION Reason for Dietary Consult: Diet Education Discharging clinician: Joana Richter ([facility]) Anticipated date of discharge: 06/20/16 - Patient Status Disposition: Home, Self-Care Condition: Good Functional capacity at discharge: independent ambulation Overall status at discharge: patient is progressing back to baseline - Discharge Instructions Instructions: Low Fiber Diet (GEN) Follow Up With: Maldonado Roberto DO [Primary Care Provider] - Joana Richter MD [Partnered Physician] - 07/05/16 1:50 pm () - Diet and Activity Activity: increase activity as tolerated Diet: other (low fiber diet) - Hospital Course Hospital course: Ms. Jules is a 60 year old female admitted to the hospital with abdominal pain with associated nausea. A CT scan showed evidence of acute diverticulitis with perforation and abscess formation. The patient was placed on IV antibiotics and bowel rest- conservative therapy. Her symptoms improved with these treatments. She had a repeat CT scan on 06/19/16 which showed enlargement of the fluid collection associated with perforated diverticulitis. She did undergo aspiration of this fluid on 06/20/16 with Interventional Radiology. The patients symptoms have resolved and she is tolerating a diet without nausea/vomiting. Her vitals are stable and she is afebrile. She is having bowel function. She is voiding and ambulating without difficulty. We will transition to oral antibiotics and begin discharge planning. Plan for outpatient follow-up with Dr. Richter in the next 14 days. - Time Spent with Patient Total time spent providing and/or coordinating discharge services: Less than 30 minutes Labs on day of discharge: Labs from last 24 hours 06/20/16 06/20/16 06/20/16 11:40 05:17 05:12 Sodium 140 Potassium 3.8 Chloride 110 H Carbon Dioxide 23 BUN 5 L Creatinine 0.73 Est GFR ( Amer) > 60 Est GFR (Non-Af Amer) > 60 BUN/Creatinine Ratio 7 Glucose 90 POC Glucose 112 H 95 H Calculated Osmolality 287 Calcium 8.6 - Impressions ITS Impressions Abdomen/Pelvis CT 06/19/16 06:58 IMPRESSION: 1. Sigmoid diverticulitis with increasing size 7.2 x 9 x 10 cm complex fluid collection suggests abscess. 2. Left renal pelvicaliectasis with distention of the left ureter. This appears to be compressed body pelvic and left lower quadrant abdominal abscess. D/ / 06/19/2016 08:03:23 Hussain Lo MD / sharon Interpreting Provider: Hussain Lo MD Needle Aspiration CT 06/20/16 10:29 IMPRESSION: Successful CT guided fluid aspiration. D/ / 06/20/2016 14:23:16 Marta Ferrer MD / Jodi Cardenas Interpreting Provider: Marta Ferrer MD - Attending Attestation I examined this patient and my medical decision-making was reviewed with the LEHR STRIPPER/PA/Advanced Practice Nurse/Resident Physician. I agree with the documented findings, disposition and treatment plan as described except to the extent set forth below.
[2016-06-20 15:34] VITALS: BP 130/75
--- NOTE | 2016-06-20 16:59 | Internal Med Progress Note ---
Date of Encounter: 06/20/16 Time of Encounter: 16:00 - Assessment and plan (1) Colonic diverticular abscess Current Visit: Yes Status: Acute Assessment and plan: with driange was found to be ovarian cyst (2) Acute diverticulitis Current Visit: Yes Status: Acute (3) Obesity (BMI 30-39.9) Current Visit: Yes Status: Acute (4) Constipation Current Visit: Yes Assessment and plan: Resolved Qualifiers: Constipation type: slow transit constipation Qualified Code(s): K59.01 - Slow transit constipation - Time Spent With Patient less than 15 minutes (Agree with discharge) - Subjective Interval history: Patient is feeling much better. Patient was found that she had ovarian cyst. Patient tolerated all her meals. Had multiple bowel movement yesterday. - Constitutional Vitals: Temp Pulse Resp BP Pulse Ox 98.0 F 79 16 130/75 96 06/20/16 15:00 06/20/16 15:00 06/20/16 15:00 06/20/16 15:00 06/20/16 15:00 General appearance: Present: pleasant, no acute distress - Head Head exam: Present: atraumatic, normocephalic - Neck Neck exam general surgery: Present: supple, trachea midline. Absent: lymphadenopathy - Respiratory Respiratory exam: Present: CTAB. Absent: accessory muscle use, rales, rhonchi, wheezes - Cardiovascular Cardiovascular exam: Present: RRR, +S1, +S2. Absent: diastolic murmur, gallop, rubs, systolic murmur - GI/Abdominal GI/Abdominal exam: Present: normal bowel sounds, soft, tenderness (Mild tenderness left lower quadrant), no peritoneal signs. Absent: distended - Extremities Exam Extremities exam: Present: warm, radial pulses palpable and symetrical. Absent : calf tenderness, cyanotic, pedal edema - Neurological Exam Neurological exam: Present: CN II-XII intact, oriented X3, no focal deficits. Absent: pronater drift, facial droop, speech deficit Internal Medicine: Result - Labs CBC & Chem 7: 06/19/16 08:58 06/20/16 05:12 Labs: BMP 06/20/16 05:12 Sodium 140 Potassium 3.8 Chloride 110 H Carbon Dioxide 23 BUN 5 L Creatinine 0.73 Glucose 90 Calcium 8.6 - ABG Interpretation ABG results: PT/INR, D-dimer PT 15.8 Seconds (9.4-12.1) H 06/19/16 08:58 - Impressions Impressions Needle Aspiration CT 06/20/16 10:29 IMPRESSION: Successful CT guided fluid aspiration. D/ / 06/20/2016 14:23:16 Marta Ferrer MD / Jodi Cardenas Interpreting Provider: Marta Ferrer MD Consult Discharge Plan - Plan Instructions: Diverticulitis (DC), Low Fiber Diet (GEN) Referrals: Maldonado Roberto DO [Primary Care Provider] - 06/26/16 2:00 pm Joana Richter MD [Partnered Physician] - 07/05/16 1:50 pm () Prescriptions: Ciprofloxacin HCl [Cipro] 500 mg PO BID #18 tablet MetroNIDAZOLE [Flagyl] 500 mg PO TID #27 tablet
== END 2016-06-20 18:00 | disposition home or self-care (01) | DRG 392 ==
LOC: 3ANU 16:30 → EMEROO 16:30 → 3ANU 19:35
PROVIDERS: ADMIT Internal Medicine; ATTEND Internal Medicine